=== PATIENT | male | born 1960 | race Caucasian/White ===

== ENCOUNTER 2017-06-09 12:07 | Emergency (ER) | payer OTHER, BC, SELFPAY | END 2017-06-09 15:33 | disposition home or self-care (01) | PROVIDERS: Emergency Provider Emergency Medicine; Family Provider Family Medicine; Visit Provider Emergency Medicine | DX: J11.1 Influenza due to unidentified influenza virus with other respiratory manifestations (principal); M25.561 Pain in right knee | CPT/HCPCS: 71020; 73700; 80053; 81001; 85025; 87040; 87070; 87275; 87276; 87430; 96365; 99284 ==

== ENCOUNTER → 2017-06-13 | Outpatient (CLI) | payer OTHER, BC, SELFPAY | PROVIDERS: Visit Provider Family Medicine | DX: R10.30 Lower abdominal pain, unspecified (principal) | CPT/HCPCS: 76881 ==

== ENCOUNTER 2017-11-20 07:43 | Observation (INO) ==
--- NOTE | 2017-11-20 08:02 | Emergency Department Note ---
ED Disposition Clinical Impression: Chest pain Qualifiers: Chest pain type: precordial pain Qualified Code(s): R07.2 - Precordial pain Disposition: Admitted as Observation Condition on Discharge: Fair Instructions: DI for Atypical Chest Pain Additional Instructions: Being admitted to rule out and get Cardiology Evaluation by Dr. Tolentino Referrals: Jamie Menjivar MD [Primary Care Provider] - Time of Disposition: 09:23 - Critical Care Critical Care Time: No Attestation: On , the high probability of a clinically significant, sudden or life threatening deterioration of the following system(s) required my full and direct attention, intervention and personal management. The time I documented below is in addition to time spent performing reported procedures but includes the following listed in this critical care notation. Medical Decision Making - Medical Records Medical records reviewed: Yes: I reviewed the patient's medical records. - Bryan Inquiry Pt receiving controlled substance: Yes Bryan was queried for this patient: No Reason not queried -: Emergent pt cond-no time Risks and benefits of using a controlled substance: were discussed with pt by me Vital Signs: 11/20/17 07:44 11/20/17 08:46 Temperature 98.2 F Temperature Source Oral Pulse Rate [Right Radial] 75 Respiratory Rate 18 Blood Pressure [Right Arm] 175/104 152/90 Blood Pressure Mean [Right Arm] 127 110 Blood Pressure Source [Right Arm] Automatic Cuff Automatic Cuff Blood Pressure Position [Right Arm] Sitting 02 Sat by Pulse Oximetry 98 Oxygen Delivery Method Room Air - Lab Data Lab results reviewed: Yes: I reviewed the patient's lab results. Lab Results 11/20/17 07:43: Amylase 89, Lipase 279 11/20/17 07:50: WBC 5.9, RBC 5.22, Hgb 16.2, Hct 50.6, MCV 96.8 H, MCH 31.0, MCHC 32.0, RDW 13.6, Plt Count 218, MPV 8.5, Neut % (Auto) 60.1, Lymph % (Auto) 30.5, [place] % (Auto) 7.1, Eos % (Auto) 1.9, Baso % (Auto) 0.4, Neut # (Auto) 3.5 , Lymph # (Auto) 1.8, [place] # (Auto) 0.4, Eos # (Auto) 0.1, Baso # (Auto) 0.0 11/20/17 07:50: Sodium 142, Potassium 3.7, Chloride 105, Carbon Dioxide 28, Anion Gap 12.7, BUN 19 H, Creatinine 1.13, Estimated Creat Clear 119, Estimated GFR 67, Est GFR ( Amer) 81, Glucose 158 H, Calcium 9.0, Total Bilirubin 0.4, AST 12 L, ALT 33, Alkaline Phosphatase 132 H, Troponin I < 0.02, Total Protein 7.9, Albumin 4.1, Globulin 3.8 H, Albumin/Globulin Ratio 1.1 11/20/17 07:50: PT 10.5, INR 0.97 11/20/17 07:50: B-Natriuretic Peptide 17 Result diagrams: 11/20/17 07:50 11/20/17 07:50 Orders (Tests/Meds): ED MEDICATIONS Generic Name Dose Route Start Last Admin Trade Name Freq PRN Reason Stop Dose Admin Nitroglycerin 0.4 mg 11/20/17 07:57 11/20/17 08:43 Nitrostat 0.4mg Sl Tablet SL 12/20/17 07:56 3 tab [id number] PRN Administration Chest Pain Discontinued Medications Generic Name Dose Route Start Last Admin Trade Name Freq PRN Reason Stop Dose Admin Aspirin 324 mg 11/20/17 07:57 11/20/17 08:44 Aspirin 81mg Chewable Tablet PO 11/20/17 07:58 324 mg ONCE ONE Administration Morphine Sulfate 4 mg 11/20/17 08:44 11/20/17 08:45 Morphine 4mg/Ml Syringe IV 11/20/17 08:45 4 mg ONCE ONE Administration Ondansetron HCl 4 mg 11/20/17 08:44 11/20/17 08:45 Zofran 4mg/2ml Vial IV 11/20/17 08:45 4 mg ONCE ONE Administration ORDERS Category Date Time Status BNP [B-Type Natriuretic Peptide] Stat Lab 11/20/17 08:56 Ordered Lactic Acid Stat Lab 11/20/17 08:54 Ordered Blood Culture Stat Micro 11/20/17 08:53 Ordered EKG Request [ECG Request by /Supa] Stat Y 11/20/17 07:56 Ordered - Radiology Data #1 Image(s): Chest Image Reviewed: Yes I reviewed the patient's radiology results, Yes I reviewed the patient's radiology image, Yes I discussed the image results w/the radiologist, Yes I have reviewed radiologist's interpretation Mild Cardiomegaly Chest Pain HPI - General Chief Complaint: Chest Pain Stated Complaint: Chest Pain Time Seen by Provider: 11/20/17 07:55 Mode of Arrival: Family Vehicle Limitations: No Limitations Description of Symptoms (Recalled from ER Triage Doc. by RN): Chest pain - History of Present Illness HPI narrative: Pt started having chest pain around 5:30 AM which he described as a squeezing pain in the center of his chest that went into his right arm and he was diaphoretic on arrival in the ED. He isw a smoker and has history of HTN and BP very high in the ED. Pain was a 10/10 on arrival and after 324mgt ASA and 1 NTG pain is a 1/10 MD complaint: chest pain indicative of cardiac Onset (ago): hour(s) Duration: constant Activity at onset: during rest Pain location: substernal Severity: severe Quality: tightness, heaviness Pain radiation: RUE Relieving factors: nitroglycerin Exacerbating factors: nothing Associated symptoms: diaphoresis Risk Factors for CAD: Hypertension, Family Hx of CAD, Smoking Treatments prior to or on arrival for Cardiac Chest Pain: aspirin, nitroglycerin , beta blockers - Related Data Home Medications Medication Instructions Recorded Confirmed Amlodipine Besylate/Benazepril 1 each PO DAILY 11/20/17 11/20/17 [Lotrel 10-20 mg Capsule] Diclofenac Potassium [Diclofenac 50 mg PO DAILY 11/20/17 11/20/17 50mg Tab] Metoprolol Tartrate 100 mg PO BID 11/20/17 11/20/17 Allergies Allergy/AdvReac Type Severity Reaction Status Date / Time naproxen [From Aleve] Allergy Verified 11/20/17 07:55 [facility] History I have reviewed the patient's past medical history: Yes Other Surgeries: Yes: Other (GB andd cervical fusion) ROS Obtained: Yes All systems reviewed & no additional complaints - Constitutional Constitutional: Reports system reviewed and no additional complaints, except as docu - Eyes Eyes: Reports system reviewed and no additional complaints, except as docu - ENT Ears, Nose, Mouth, and Throat: Reports system reviewed and no additional complaints, except as docu - Cardiovascular Cardiovascular: Reports system reviewed and no additional complaints, except as docu Physical Exam - General General appearance: alert, in distress - Head Head exam: atraumatic - Eye Eye exam: Present: normal appearance - ENT ENT exam: Present: normal exam - Neck Neck exam: Present: normal inspection - Chest Chest inspection: Present: normal inspection - Respiratory Respiratory exam: Present: normal lung sounds bilaterally - Cardiovascular Cardiovascular exam: Present: regular rate, normal rhythm - Abdominal Exam Abdominal exam: Present: soft, normal bowel sounds - Back Exam Back exam: Present: normal inspection - Neurological Exam Neurological exam: Present: alert, oriented X3 - Skin Skin exam: Present: diaphoresis
[2017-11-20 08:07] LABS: Basophils % 0.4 % (0.1-2.0); Eosinophils # 0.1 K/mm3 (0.0-0.4); Eosinophils % 1.9 % (0.1-12.0); Hematocrit 50.6 % (42.0-52.0); Hemoglobin 16.2 g/dL (14.1-18.0); Lymphocytes # 1.8 K/mm3 (0.7-4.5); Lymphocytes % 30.5 K/mm3 (10-50); Mean Corpuscular Volume 96.8 fl (80-94); Mean Platelet Volume 8.5 fl (7.4-10.4); Monocytes # 0.4 K/mm3 (0.1-1.0); Monocytes % 7.1 % (1.7-9.3); Neutrophils # 3.5 K/mm3 (1.8-7.8); Neutrophils % 60.1 % (37.0-80.0); Platelet Count 218 K/mm3 (142-424); Red Blood Count 5.22 M/mm3 (4.60-6.20); Red Cell Distribution Width 13.6 % (11.5-17.5); White Blood Count 5.9 K/mm3 (4.8-10.8)
[2017-11-20 08:19] LABS: Alanine Aminotransferase 33 U/L (12-78); Albumin Level 4.1 gm/dL (3.4-5.0); Albumin/Globulin Ratio 1.1 (1.1-1.8); Alkaline Phosphatase 132 U/L (46-116); Anion Gap 12.7 mEq/L (5-15); Aspartate Amino Transferase 12 U/L (15-37); Bilirubin,Total 0.4 mg/dL (0.2-1.0); Blood Urea Nitrogen 19 mg/dL (7-18); Carbon Dioxide 28 mmol/L (21.0-32.0); Chloride 105 mmol/L (98-107); Globulin 3.8 gm/dl (1.3-3.2); Glucose 158 mg/dL (74-106); Potassium 3.7 mmoL/L (3.5-5.1); Sodium 142 mmol/L (136-145); Total Protein,Serum 7.9 gm/dL (6.4-8.2)
[2017-11-20 08:27] LABS: INR 0.97 (0.9-1.1); Prothrombin Time 10.5 seconds (9.4-11.8)
[2017-11-20 08:40] LABS: Amylase 89 U/L (25-125); Lipase 279 u/L (73-393)
--- NOTE | 2017-11-20 10:16 | History & Physical Report ---
*Admission Date: 11/20/17 <Narda Paez 11/20/17 10:16> *Chief complaint: chest pain <Narda Paez 11/20/17 10:16> *History of present illness: Mr Mcmillan is a 56 year old male with a history of HTN and psoriatic arthritis who presented to the emergency department for onset of right sided chest discomfort this a.m. Symptoms started anteriorly and began radiating towards the back with discomfort in the armpit and triceps area. Symptoms have been persistent to some degree since about 5:30 this morning. He did go on to work at which time the discomfort did worsen. Thus he presented to the ER. He did receive significant relief in the emergency department with combination of nitroglycerin and morphine. Symptoms went from "10/10" down to about a 1/10 before starting to ramp back up at this time. He has received nitroglycerin approximately 10 minutes ago with no change in his symptoms at this time. He just finished eating lunch and has had no change in his symptoms from that. Movement or changing position does not aggravate or alleviate his symptoms. He relates almost the very same symptoms in the late for which a cardiac cath was performed which revealed no coronary artery disease and "heart as strong as a bull". The patient had his gallbladder taken out at that time with relief of symptoms. The patient does smoke but does not drink and is not a diabetic. His initial cardiac enzyme is normal. His EKG is sinus with no acute changes. Cardiology is consulted for evaluation and recommendations. Patient was noted to be hypertensive on admission despite having taken his morning medicines consisting of Lotrel 5-40 and metoprolol 100 mg. <Narda Paez 11/20/17 13:47> [facility] History Medical History: Reports:: Hypertension Denies:: Arrhythmia, Asthma, Atherosclerotic Heart Disease, BPH, Chronic Obstructive Pulmonary Disease (COPD), Coronary Artery Disease, Cerebrovascular Accident, Dementia, Depression, Diabetes Mellitus Type 2, Gastroesophageal Reflux Disease(GERD) <PaezNarda 11/20/17 13:47> Other Medical History: Reports: Arthritis <PaezNarda Jorge Luis 11/20/17 13:47> Laterality Cases: Bilateral: Tonsillectomy <Narda Paez 11/20/17 13:47> Other Surgeries: Yes: Cholecystectomy, Other (GB andd cervical fusion) < Narda Paez 11/20/17 13:47> Comment: Hemorrhoidectomy <Narda Paez 11/20/17 13:47> - *Social History Smoking Status: Current every day smoker <Narda Paez 11/20/17 13:47> *Family Hx:: Coronary Artery Disease (maternal uncles) <Narda Paez 13:47> Review of Systems - Constitutional Denies body ache(s), Denies fever(s) <Narda Paez 11/20/17 13:47> - ENT Denies ear pain, Denies sore throat <Narda Paez 11/20/17 13:47> - *Cardiovascular Reports chest pain, Reports chest pain at rest, Reports shortness of breath, Denies leg swelling <Narda Paez 11/20/17 13:47> - *Respiratory Denies chest congestion, Denies cough <JeannineNarda 11/20/17 13:47> - *Gastrointestinal Denies abdominal pain, Denies change in stools, Denies constipation, Denies heartburn, Denies bright, red blood in stools, Denies nausea, Denies vomiting <Narda Paez 11/20/17 13:47> - *Genitourinary Denies difficulty urinating <Narda Paez 11/20/17 13:47> - *Musculoskeletal Reports joint pain <Narda Paez 11/20/17 13:47> - *Neurologic Denies abnormal walking <Narda Paez 11/20/17 13:47> - Psychiatric Denies depression <Narda Paez 11/20/17 13:47> Meds Home Medications Medication Instructions Recorded Confirmed Type Amlodipine Besylate/Benazepril 1 cap PO DAILY 11/20/17 11/20/17 History [Amlodipine-Benazepril 5-40 mg] Diclofenac Sodium [Diclofenac 75mg 75 mg PO BID 11/20/17 11/20/17 History Tab] Metoprolol Tartrate 50 mg PO BID 11/20/17 11/20/17 History Ustekinumab [Stelara] 90 mg SQ DIRECTED 11/20/17 11/20/17 History <Jamie Menjivar - 11/20/17 18:26> Allergies Allergy/AdvReac Type Severity Reaction Status Date / Time naproxen [From Aleve] Allergy Verified 11/20/17 07:55 <OttoJamie Shelby - 11/20/17 18:26> Exam Vital signs and Labs for Last 24 Hours: Temp Pulse Resp BP Pulse Ox 98.3 F 64 20 178/98 95 11/20/17 10:55 11/20/17 17:00 11/20/17 17:00 11/20/17 17:00 11/20/17 17:00 Laboratory Results - last 24 hr 11/20/17 07:43: Amylase 89, Lipase 279 11/20/17 07:50: WBC 5.9, RBC 5.22, Hgb 16.2, Hct 50.6, MCV 96.8 H, MCH 31.0, MCHC 32.0, RDW 13.6, Plt Count 218, MPV 8.5, Neut % (Auto) 60.1, Lymph % (Auto) 30.5, [place] % (Auto) 7.1, Eos % (Auto) 1.9, Baso % (Auto) 0.4, Neut # (Auto) 3.5 , Lymph # (Auto) 1.8, [place] # (Auto) 0.4, Eos # (Auto) 0.1, Baso # (Auto) 0.0 11/20/17 07:50: Sodium 142, Potassium 3.7, Chloride 105, Carbon Dioxide 28, Anion Gap 12.7, BUN 19 H, Creatinine 1.13, Estimated Creat Clear 119, Estimated GFR 67, Est GFR ( Amer) 81, Glucose 158 H, Calcium 9.0, Total Bilirubin 0.4, AST 12 L, ALT 33, Alkaline Phosphatase 132 H, Troponin I < 0.02, Total Protein 7.9, Albumin 4.1, Globulin 3.8 H, Albumin/Globulin Ratio 1.1 11/20/17 07:50: PT 10.5, INR 0.97 11/20/17 07:50: B-Natriuretic Peptide 11/20/17 09:23: Lactic Acid 1.9 11/20/17 12:40: Total Creatine Kinase 136, CK-MB (CK-2) 1.7, CK-MB (CK-2) Rel Index 1.3, Troponin I < 0.02 11/20/17 14:20: Total Creatine Kinase 139, CK-MB (CK-2) 1.7, CK-MB (CK-2) Rel Index 1.2, Troponin I < 0.02 <Jamie Menjivar - 11/20/17 18:26> Temp Pulse Resp BP Pulse Ox 98.2 F 75 18 152/90 98 11/20/17 10:01 11/20/17 10:01 11/20/17 10:01 11/20/17 10:01 11/20/17 07:44 Laboratory Results - last 24 hr 11/20/17 07:43: Amylase 89, Lipase 279 11/20/17 07:50: WBC 5.9, RBC 5.22, Hgb 16.2, Hct 50.6, MCV 96.8 H, MCH 31.0, MCHC 32.0, RDW 13.6, Plt Count 218, MPV 8.5, Neut % (Auto) 60.1, Lymph % (Auto) 30.5, [place] % (Auto) 7.1, Eos % (Auto) 1.9, Baso % (Auto) 0.4, Neut # (Auto) 3.5 , Lymph # (Auto) 1.8, [place] # (Auto) 0.4, Eos # (Auto) 0.1, Baso # (Auto) 0.0 11/20/17 07:50: Sodium 142, Potassium 3.7, Chloride 105, Carbon Dioxide 28, Anion Gap 12.7, BUN 19 H, Creatinine 1.13, Estimated Creat Clear 119, Estimated GFR 67, Est GFR ( Amer) 81, Glucose 158 H, Calcium 9.0, Total Bilirubin 0.4, AST 12 L, ALT 33, Alkaline Phosphatase 132 H, Troponin I < 0.02, Total Protein 7.9, Albumin 4.1, Globulin 3.8 H, Albumin/Globulin Ratio 1.1 11/20/17 07:50: PT 10.5, INR 0.97 11/20/17 07:50: B-Natriuretic Peptide 17 <Narda Paez - 11/20/17 10:16> I & O for Last 24 hours: Intake & Output 11/18/17 11/19/17 11/20/17 11/21/17 11:59 11:59 11:59 11:59 Intake Total 1100 / 1100 Balance 1100 / 1100 Weight 261 lb 5 oz <Jamie Menjivar - 11/20/17 18:26> Intake & Output 11/17/17 11/18/17 11/19/17 11/20/17 11:59 11:59 11:59 11:59 Weight 260 lb <Narda Paez 11/20/17 10:16> Radiology Reports for the Last 24 Hours: CXR 11/20/17 IMPRESSION: Cardiomegaly otherwise negative <Narda Paez 11/20/17 13:47> - Constitutional no acute distress <Narda Paez 11/20/17 13:47> - *Routine HEENT Exam Head: Present: normocephalic, atraumatic <Narda Paez 11/20/17 13:47> Eye: Present: PERRL. Absent: conjunctival icterus, scleral injection <Narda Paez 11/20/17 13:47> ENT: Present: mucous membranes moist, oropharynx clear <Narda Paez 13:47> - *Routine Neck Exam Present: supple. Absent: carotid bruit, lymphadenopathy, thyromegaly <Narda Paez 11/20/17 13:47> - *Routine Respiratory Exam Present: CTA bilaterally (A&P) <Narda Paez 11/20/17 13:47> - *Routine Cardiovascular Exam Present: RRR <Narda Paez 11/20/17 13:47> - *Routine Abdominal Exam Present: soft, normoactive bowel sounds, hernia. Absent: tenderness <Narda Paez 11/20/17 13:47> - *Routine Extremities Exam Present: full ROM. Absent: edema, calf tenderness <Narda Paez 11/20/17 13:47> - *Routine Neurological Exam Present: alert, oriented X3 <Narda Paez 11/20/17 13:47> H&P: Result - Labs Labs: Short CBC 11/20/17 Range/Units 07:50 WBC 5.9 (4.8-10.8) K/mm3 Hgb 16.2 (14.1-18.0) g/dL Hct 50.6 (42.0-52.0) % Plt Count 218 (142-424) K/mm3 [facility] 11/20/17 07:50 Sodium 142 Potassium 3.7 Chloride 105 Carbon Dioxide 28 BUN 19 H Creatinine 1.13 Glucose 158 H Calcium 9.0 Cardiac Enzymes 11/20/17 11/20/17 11/20/17 Range/Units 07:50 12:40 14:20 Total Creatine Kinase 136 139 (39-308) U/L CK-MB (CK-2) 1.7 1.7 (0.0-3.6) ng/ml Troponin I < 0.02 < 0.02 < 0.02 (0.00-0.06) ng/ml Liver Function 11/20/17 Range/Units 07:50 Total Bilirubin 0.4 (0.2-1.0) mg/dL AST 12 L (15-37) U/L ALT 33 (12-78) U/L Alkaline Phosphatase 132 H (46-116) U/L Albumin 4.1 (3.4-5.0) gm/dL <Jamie Menjivar - 11/20/17 18:26> Short CBC 11/20/17 Range/Units 07:50 WBC 5.9 (4.8-10.8) K/mm3 Hgb 16.2 (14.1-18.0) g/dL Hct 50.6 (42.0-52.0) % Plt Count 218 (142-424) K/mm3 [facility] 11/20/17 07:50 Sodium 142 Potassium 3.7 Chloride 105 Carbon Dioxide 28 BUN 19 H Creatinine 1.13 Glucose 158 H Calcium 9.0 Cardiac Enzymes 11/20/17 Range/Units 07:50 Troponin I < 0.02 (0.00-0.06) ng/ml Liver Function 11/20/17 Range/Units 07:50 Total Bilirubin 0.4 (0.2-1.0) mg/dL AST 12 L (15-37) U/L ALT 33 (12-78) U/L Alkaline Phosphatase 132 H (46-116) U/L Albumin 4.1 (3.4-5.0) gm/dL <Narda Paez - 11/20/17 10:16> Assessment and Plan (1) Chest pain Current visit: Yes Status: Acute Qualifiers: Chest pain type: precordial pain Qualified Code(s): R07.2 - Precordial pain Category: Medical Code(s): R07.9 - Chest pain, unspecified (2) Tobacco use disorder Current visit: Yes Status: Chronic Category: Medical Code(s): F17.200 - Nicotine dependence, unspecified, uncomplicated (3) Hypertension Current visit: Yes Status: Chronic Category: Medical Code(s): I10 - Essential (primary) hypertension <Jamie Menjivar - 11/20/17 18:26> (1) Chest pain Current visit: Yes Status: Acute Qualifiers: Chest pain type: precordial pain Qualified Code(s): R07.2 - Precordial pain Category: Medical Code(s): R07.9 - Chest pain, unspecified (2) Tobacco use disorder Current visit: Yes Status: Chronic Category: Medical Code(s): F17.200 - Nicotine dependence, unspecified, uncomplicated (3) Hypertension Current visit: Yes Status: Chronic Category: Medical Code(s): I10 - Essential (primary) hypertension <Narda Paez - 11/20/17 13:31> - Assessment and plan all Dx Assessment and Plan for all problems:: Patient seen and examined. Concur with plan for serial enzymes and cardiology consult <Jamie Menjivar - 11/20/17 18:26> cardiac enzymes and cardiology to see <Narda Paez - 11/20/17 13:47>
--- NOTE | 2017-11-20 10:58 | Pharmacy Consult Notes ---
[facility] Pharmacy VTE Monitoring - Patient Demographics Admission date: 11/20/17 Report Date: 11/20/17 Time: 10:58 Allergies/Adverse Reactions: Patient Allergies naproxen [From Aleve] Allergy (Verified 11/20/17 07:55) Height: 1.83 m Weight: 118.529 kg Patient Problems: Current Active Problems Chest pain (Acute) - VTE Risk Labs: VTE Related Lab Results Hgb 16.2 g/dL (14.1-18.0) 11/20/17 07:50 Hct 50.6 % (42.0-52.0) 11/20/17 07:50 Plt Count 218 K/mm3 (142-424) 11/20/17 07:50 PT 10.5 seconds (9.4-11.8) 11/20/17 07:50 INR 0.97 (0.9-1.1) 11/20/17 07:50 BUN 19 mg/dL (7-18) H 11/20/17 07:50 Creatinine 1.13 mg/dL (0.70-1.30) 11/20/17 07:50 Estimated Creat Clear 119 mL/min (0-300) 11/20/17 07:50 Was VTE Risk Assessment Performed: No Clinical Trial Participant: No - Prophylaxis VTE Prophylaxis Ordered?: Yes Types of VTE Prophylaxis: TEDS Knee High
--- NOTE | 2017-11-20 12:42 | Consult Report ---
History of Present Illness Consult date: 11/20/17 Requesting physician: Jamie Menjivar Consult reason: chest pain Chief complaint: chest pain Additional Medical History:: 1. Tobacco use 2. Hypertension treated for about 20 years 3. History of cholecystectomy approximately 20 years ago 4. Psoriasis 5. Arthritis and cervical bulging disc History of present illness: 56-year-old white male presented to the emergency department for onset of right sided chest discomfort this a.m. Symptoms started anteriorly and began radiating towards the back with discomfort in the armpit and triceps area. Symptoms have been persistent to some degree since about 5:30 this morning. He did receive significant relief in the emergency department with combination of nitroglycerin and morphine. Symptoms went from "10/10" down to about a 1/10 before starting to ramp back up at this time. He has received nitroglycerin approximately 10 minutes ago with no change in his symptoms at this time. He just finished eating lunch and has had no change in his symptoms from that. Movement or changing position does not aggravate or alleviate his symptoms. He relates almost the very same symptoms in the late for which a cardiac cath was performed which revealed no coronary artery disease and "heart as strong as a bull". The patient had his gallbladder taken out at that time with relief of symptoms. The patient does smoke but does not drink and is not a diabetic. There is no family history of heart disease. His initial cardiac enzyme is normal. His EKG is sinus with no acute changes. Cardiology consulted for evaluation and recommendations. Patient was noted to be hypertensive on admission despite having taken his morning medicines consisting of amlodipine 10 mg and metoprolol 100 mg. [facility] History Medical History: Reports:: Hypertension Denies:: Cancer, Diabetes Mellitus Type 1, Diabetes Mellitus Type 2, MRSA Other Surgeries: Yes: Cholecystectomy, Other (cervical fusion) Amputation: No Fractures: No - *Social History Educational Level: Attended College Smoking Status: Current every day smoker Tobacco Type: cigarettes # Packs/Day (cigarettes): 10 Alcohol Intake: never Occupational Status: employed Housing: house Household Members: spouse - Psychiatric History Expresses thoughts of harming self/others: None Suicide Plan Description: No Plan *Family Hx:: Cancer, Coronary Artery Disease, Diabetes Meds Home Medications Medication Instructions Recorded Confirmed Type Amlodipine Besylate/Benazepril 1 cap PO DAILY 11/20/17 11/20/17 History [Amlodipine-Benazepril 5-40 mg] Diclofenac Sodium [Diclofenac 75mg 75 mg PO BID 11/20/17 11/20/17 History Tab] Metoprolol Tartrate 50 mg PO BID 11/20/17 11/20/17 History Ustekinumab [Stelara] 90 mg SQ DIRECTED 11/20/17 11/20/17 History Allergies Allergy/AdvReac Type Severity Reaction Status Date / Time naproxen [From Aleve] Allergy Verified 11/20/17 07:55 Review of Systems - *Cardiovascular Reports chest pain, Reports shortness of breath with activity - *Respiratory Reports shortness of breath - *Gastrointestinal Reports loose stools, Denies abdominal pain, Denies constipation - *Genitourinary Denies difficulty urinating - *Musculoskeletal Reports joint pain Exam Vital signs and Labs for Last 24 Hours: Temp Pulse Resp BP Pulse Ox 98.3 F 63 18 167/98 98 11/20/17 10:55 11/20/17 12:05 11/20/17 12:06 11/20/17 12:05 11/20/17 12:05 Laboratory Results - last 24 hr 11/20/17 07:43: Amylase 89, Lipase 279 11/20/17 07:50: WBC 5.9, RBC 5.22, Hgb 16.2, Hct 50.6, MCV 96.8 H, MCH 31.0, MCHC 32.0, RDW 13.6, Plt Count 218, MPV 8.5, Neut % (Auto) 60.1, Lymph % (Auto) 30.5, [place] % (Auto) 7.1, Eos % (Auto) 1.9, Baso % (Auto) 0.4, Neut # (Auto) 3.5 , Lymph # (Auto) 1.8, [place] # (Auto) 0.4, Eos # (Auto) 0.1, Baso # (Auto) 0.0 11/20/17 07:50: Sodium 142, Potassium 3.7, Chloride 105, Carbon Dioxide 28, Anion Gap 12.7, BUN 19 H, Creatinine 1.13, Estimated Creat Clear 119, Estimated GFR 67, Est GFR ( Amer) 81, Glucose 158 H, Calcium 9.0, Total Bilirubin 0.4, AST 12 L, ALT 33, Alkaline Phosphatase 132 H, Troponin I < 0.02, Total Protein 7.9, Albumin 4.1, Globulin 3.8 H, Albumin/Globulin Ratio 1.1 11/20/17 07:50: PT 10.5, INR 0.97 11/20/17 07:50: B-Natriuretic Peptide 17 11/20/17 09:23: Lactic Acid 1.9 I & O for Last 24 hours: Intake & Output 11/18/17 11/19/17 11/20/17 11/21/17 11:59 11:59 11:59 11:59 Weight 261 lb 5 oz - *Routine Neck Exam Absent: JVD, carotid bruit - *Routine Respiratory Exam Present: CTA bilaterally - *Routine Cardiovascular Exam Present: RRR. Absent: murmur, gallop, rubs - *Routine Abdominal Exam Present: soft. Absent: tenderness - *Routine Extremities Exam Absent: edema - *Routine Neurological Exam Present: alert, oriented X3, moving all extremities Assessment and Plan (1) Hypertension Current visit: Yes Status: Acute Category: Medical Code(s): I10 - Essential (primary) hypertension (2) Chest pain Current visit: Yes Status: Acute Qualifiers: Chest pain type: precordial pain Qualified Code(s): R07.2 - Precordial pain Category: Medical Code(s): R07.9 - Chest pain, unspecified (3) Abnormal EKG Current visit: Yes Status: Acute Category: Medical Code(s): R94.31 - Abnormal electrocardiogram [ECG] [EKG] - Assessment and plan all Dx Assessment and Plan for all problems:: 1. Will repeat EKG at this time. 2. We will give additional 10 mg of Norvasc now. Update: Repeat EKG shows evidence of T-wave inversion in inferior leads consistent with suggestion of inferior ischemia. In light of patient's chest pain we will add nitroglycerin paste and prepare him for a heart catheterization.
[2017-11-20 13:09] LABS: Creatine Kinase 136 U/L (39-308)
[2017-11-20 15:00] LABS: Creatine Kinase 139 U/L (39-308)
--- NOTE | 2017-11-21 08:20 | Progress Note ---
<Narda Paez - Last Filed: 11/21/17 08:17> Internal Medicine - PN: Subj *Date: 11/21/17 *Time: 08:17 Interval history: Doing well. He still has some right side chest soreness and also sore in his right upper arm. States he could not sleep last night. He set up in the chair most of the night. He is eating without difficulty. His breathing is normal. He ambulates without difficulty. Discussed at length smoking cessation and necessary changes of behavior. Exam Vital signs and Labs for Last 24 Hours: Temp Pulse Resp BP Pulse Ox 97.9 F 73 20 190/100 97 11/21/17 07:44 11/21/17 07:44 11/21/17 07:44 11/21/17 07:44 11/21/17 07:44 Laboratory Results - last 24 hr 11/20/17 07:43: Amylase 89, Lipase 279 11/20/17 07:50: WBC 5.9, RBC 5.22, Hgb 16.2, Hct 50.6, MCV 96.8 H, MCH 31.0, MCHC 32.0, RDW 13.6, Plt Count 218, MPV 8.5, Neut % (Auto) 60.1, Lymph % (Auto) 30.5, [place] % (Auto) 7.1, Eos % (Auto) 1.9, Baso % (Auto) 0.4, Neut # (Auto) 3.5 , Lymph # (Auto) 1.8, Greene # (Auto) 0.4, Eos # (Auto) 0.1, Baso # (Auto) 0.0 11/20/17 07:50: Sodium 142, Potassium 3.7, Chloride 105, Carbon Dioxide 28, Anion Gap 12.7, BUN 19 H, Creatinine 1.13, Estimated Creat Clear 119, Estimated GFR 67, Est GFR ( Amer) 81, Glucose 158 H, Calcium 9.0, Total Bilirubin 0.4, AST 12 L, ALT 33, Alkaline Phosphatase 132 H, Troponin I < 0.02, Total Protein 7.9, Albumin 4.1, Globulin 3.8 H, Albumin/Globulin Ratio 1.1 11/20/17 07:50: PT 10.5, INR 0.97 11/20/17 07:50: B-Natriuretic Peptide 17 11/20/17 09:23: Lactic Acid 1.9 11/20/17 12:40: Total Creatine Kinase 136, CK-MB (CK-2) 1.7, CK-MB (CK-2) Rel Index 1.3, Troponin I < 0.02 11/20/17 14:20: Total Creatine Kinase 139, CK-MB (CK-2) 1.7, CK-MB (CK-2) Rel Index 1.2, Troponin I < 0.02 11/20/17 20:00: Total Creatine Kinase 122, CK-MB (CK-2) 1.5, CK-MB (CK-2) Rel Index 1.2, Troponin I 0.03 I & O for Last 24 hours: Intake & Output 11/18/17 11/19/17 11/20/17 11/21/17 11:59 11:59 11:59 11:59 Intake Total 1700 / 1700 Balance 1700 / 1700 Weight 261 lb 5 oz Microbiology Reports for the Last 24 Hours: Microbiology 11/20/17 09:29 Blood Blood Culture - Preliminary Radiology Reports for the Last 24 Hours: Left heart cath 11/20/2017 IMPRESSION: 1. Mild to moderate disease involving the mid LAD which is nonflow limiting 2. Normal ejection fraction 3. Normal to mildly elevated LVEDP - Constitutional no acute distress - *Routine Respiratory Exam Present: CTA bilaterally (Anteriorly and posteriorly) - *Routine Cardiovascular Exam Present: RRR - *Routine Abdominal Exam Present: soft, normoactive bowel sounds. Absent: tenderness - *Routine Extremities Exam Present: pulses intact. Absent: edema, calf tenderness - *Routine Neurological Exam Present: alert, oriented X3 Assessment and Plan (1) Chest pain Current visit: Yes Status: Acute Category: Medical Code(s): R07.9 - Chest pain, unspecified (2) Tobacco use disorder Current visit: Yes Status: Chronic Category: Medical Code(s): F17.200 - Nicotine dependence, unspecified, uncomplicated (3) Hypertension Current visit: Yes Status: Chronic Category: Medical Code(s): I10 - Essential (primary) hypertension - Assessment and plan all Dx Assessment and Plan for all problems:: Will discharge home on medicines as per cardiology. Follow-up [facility] and with cardiology. Echocardiogram report pending at time of discharge. <Ron Siegel - Last Filed: 11/21/17 08:24> Internal Medicine - PN: Subj *Date: 11/21/17 *Time: 08:23 Exam Vital signs and Labs for Last 24 Hours: Temp Pulse Resp BP Pulse Ox 97.9 F 73 20 190/100 97 11/21/17 07:44 11/21/17 07:44 11/21/17 07:44 11/21/17 07:44 11/21/17 07:44 Laboratory Results - last 24 hr 11/20/17 07:43: Amylase 89, Lipase 279 11/20/17 07:50: Sodium 142, Potassium 3.7, Chloride 105, Carbon Dioxide 28, Anion Gap 12.7, BUN 19 H, Creatinine 1.13, Estimated Creat Clear 119, Estimated GFR 67, Est GFR ( Amer) 81, Glucose 158 H, Calcium 9.0, Total Bilirubin 0.4, AST 12 L, ALT 33, Alkaline Phosphatase 132 H, Troponin I < 0.02, Total Protein 7.9, Albumin 4.1, Globulin 3.8 H, Albumin/Globulin Ratio 1.1 11/20/17 07:50: PT 10.5, INR 0.97 11/20/17 07:50: B-Natriuretic Peptide 17 11/20/17 09:23: Lactic Acid 1.9 11/20/17 12:40: Total Creatine Kinase 136, CK-MB (CK-2) 1.7, CK-MB (CK-2) Rel Index 1.3, Troponin I < 0.02 11/20/17 14:20: Total Creatine Kinase 139, CK-MB (CK-2) 1.7, CK-MB (CK-2) Rel Index 1.2, Troponin I < 0.02 11/20/17 20:00: Total Creatine Kinase 122, CK-MB (CK-2) 1.5, CK-MB (CK-2) Rel Index 1.2, Troponin I 0.03 I & O for Last 24 hours: Intake & Output 11/18/17 11/19/17 11/20/17 11/21/17 11:59 11:59 11:59 11:59 Intake Total 1700 / 1700 Balance 1700 / 1700 Weight 261 lb 5 oz Microbiology Reports for the Last 24 Hours: Microbiology 11/20/17 09:29 Blood Blood Culture - Preliminary Assessment and Plan (1) Chest pain Current visit: Yes Status: Acute Qualifiers: Chest pain type: precordial pain Qualified Code(s): R07.2 - Precordial pain Category: Medical Code(s): R07.9 - Chest pain, unspecified (2) Tobacco use disorder Current visit: Yes Status: Chronic Category: Medical Code(s): F17.200 - Nicotine dependence, unspecified, uncomplicated (3) Hypertension Current visit: Yes Status: Chronic Category: Medical Code(s): I10 - Essential (primary) hypertension - Assessment and plan all Dx Assessment and Plan for all problems:: Saw patient, agree with above note.
--- NOTE | 2017-11-21 08:21 | Progress Note ---
Subjective Date: 11/21/17 Time: 08:17 Principal diagnosis: chest pain, HTN Interval history: 56-year-old white male in no acute distress. Still with some musculoskeletal discomfort in the right side which improves with stretching. Hernia cath revealed [id number] coronary artery disease. Patient does have significant hypertension for which medications have been adjusted. Exam Vital signs and Labs for Last 24 Hours: Temp Pulse Resp BP Pulse Ox 97.9 F 73 20 190/100 97 11/21/17 07:44 11/21/17 07:44 11/21/17 07:44 11/21/17 07:44 11/21/17 07:44 Laboratory Results - last 24 hr 11/20/17 07:43: Amylase 89, Lipase 279 11/20/17 07:50: WBC 5.9, RBC 5.22, Hgb 16.2, Hct 50.6, MCV 96.8 H, MCH 31.0, MCHC 32.0, RDW 13.6, Plt Count 218, MPV 8.5, Neut % (Auto) 60.1, Lymph % (Auto) 30.5, [place] % (Auto) 7.1, Eos % (Auto) 1.9, Baso % (Auto) 0.4, Neut # (Auto) 3.5 , Lymph # (Auto) 1.8, [place] # (Auto) 0.4, Eos # (Auto) 0.1, Baso # (Auto) 0.0 11/20/17 07:50: Sodium 142, Potassium 3.7, Chloride 105, Carbon Dioxide 28, Anion Gap 12.7, BUN 19 H, Creatinine 1.13, Estimated Creat Clear 119, Estimated GFR 67, Est GFR ( Amer) 81, Glucose 158 H, Calcium 9.0, Total Bilirubin 0.4, AST 12 L, ALT 33, Alkaline Phosphatase 132 H, Troponin I < 0.02, Total Protein 7.9, Albumin 4.1, Globulin 3.8 H, Albumin/Globulin Ratio 1.1 11/20/17 07:50: PT 10.5, INR 0.97 11/20/17 07:50: B-Natriuretic Peptide 17 11/20/17 09:23: Lactic Acid 1.9 11/20/17 12:40: Total Creatine Kinase 136, CK-MB (CK-2) 1.7, CK-MB (CK-2) Rel Index 1.3, Troponin I < 0.02 11/20/17 14:20: Total Creatine Kinase 139, CK-MB (CK-2) 1.7, CK-MB (CK-2) Rel Index 1.2, Troponin I < 0.02 11/20/17 20:00: Total Creatine Kinase 122, CK-MB (CK-2) 1.5, CK-MB (CK-2) Rel Index 1.2, Troponin I 0.03 I & O for Last 24 hours: Intake & Output 11/18/17 11/19/17 11/20/17 11/21/17 11:59 11:59 11:59 11:59 Intake Total 1700 / 1700 Balance 1700 / 1700 Weight 261 lb 5 oz Microbiology Reports for the Last 24 Hours: Microbiology 11/20/17 09:29 Blood Blood Culture - Preliminary - *Routine Respiratory Exam Present: CTA bilaterally - *Routine Cardiovascular Exam Present: RRR Progress Note: A&P (1) Chest pain Status: Acute Current Visit: Yes (2) Tobacco use disorder Status: Chronic Current Visit: Yes (3) Hypertension Status: Chronic Current Visit: Yes Assessment and Plan for All Diagnoses:: Okay for discharge from cardiology standpoint. Medications at discharge to include: Coreg 25 mg twice daily Hydrochlorothiazide 25 mg twice daily Lisinopril 20 mg twice daily Norvasc 10 mg daily Aspirin 81 mg daily Crestor 10 mg or atorvastatin 20 mg daily Follow-up in our office in 2 weeks with blood pressure readings and blood pressure machine. We will plan to obtain a renal duplex in the future to rule out renal artery stenosis.
--- NOTE | 2017-11-22 11:33 | Discharge Summary ---
General - General Admission date:: 11/20/17 Discharge date: 11/21/17 HPI HPI: Mr Mcmillan is a 56 year old male with a history of HTN and psoriatic arthritis who presented to the emergency department for onset of right sided chest discomfort this a.m. Symptoms started anteriorly and began radiating towards the back with discomfort in the armpit and triceps area. Symptoms have been persistent to some degree since about 5:30 this morning. He did go on to work at which time the discomfort did worsen. Thus he presented to the ER. He did receive significant relief in the emergency department with combination of nitroglycerin and morphine. Symptoms went from "10/10" down to about a 1/10 before starting to ramp back up at this time. He has received nitroglycerin approximately 10 minutes ago with no change in his symptoms at this time. He just finished eating lunch and has had no change in his symptoms from that. Movement or changing position does not aggravate or alleviate his symptoms. He relates almost the very same symptoms in the late for which a cardiac cath was performed which revealed no coronary artery disease and "heart as strong as a bull". The patient had his gallbladder taken out at that time with relief of symptoms. The patient does smoke but does not drink and is not a diabetic. His initial cardiac enzyme is normal. His EKG is sinus with no acute changes. Cardiology is consulted for evaluation and recommendations. Patient was noted to be hypertensive on admission despite having taken his morning medicines consisting of Lotrel 5-40 and metoprolol 100 mg. Hospital Course Hospital Course: Cardiology saw the patient and repeated his EKG. They also gave him an additional 10 mg of Norvasc. His repeat EKG showed evidence of T-wave inversion in inferior leads consistent with suggestion of inferior ischemia. In light of the patient's chest pain, cardiology added nitroglycerin paste and prepared him for a heart catheterization. His cath revealed [id number] coronary artery disease. Cardiology felt he was stable for discharge and would need to be discharged home on Coreg 25 mg twice daily, Hydrochlorothiazide 25 mg twice daily, Lisinopril 20 mg twice daily, Norvasc 10 mg daily, Aspirin 81 mg daily, and Crestor 10 mg or atorvastatin 20 mg daily. He will need to follow -up in the cardiology office in 2 weeks with blood pressure readings and a blood pressure machine. They will get a renal duplex in the future to rule out renal artery stenosis. Objective Vital signs: Temp Pulse Resp BP Pulse Ox 97.9 F 70 20 178/98 97 11/21/17 07:44 11/21/17 08:00 11/21/17 07:44 11/21/17 10:22 11/21/17 07:44 Narrative: - Constitutional no acute distress - *Routine HEENT Exam Head: Present: normocephalic, atraumatic Eye: Present: PERRL. Absent: conjunctival icterus, scleral injection ENT: Present: mucous membranes moist, oropharynx clear - *Routine Neck Exam Present: supple. Absent: carotid bruit, lymphadenopathy, thyromegaly - *Routine Respiratory Exam Present: CTA bilaterally (A&P) - *Routine Cardiovascular Exam Present: RRR - *Routine Abdominal Exam Present: soft, normoactive bowel sounds, hernia. Absent: tenderness - *Routine Extremities Exam Present: full ROM. Absent: edema, calf tenderness - *Routine Neurological Exam Present: alert, oriented X3 Results Labs on day of discharge: Preliminary micro results at discharge 11/20/17 09:35 Blood Culture - Preliminary Blood NO GROWTH AFTER 48 HOURS 11/20/17 09:29 Blood Culture - Preliminary Blood Gram Positive Bacilli DS: Diagnosis - Discharge Diagnosis (1) Chest pain Status: Acute (2) Tobacco use disorder Status: Chronic (3) Hypertension Status: Chronic Discharge Plan - Patient Discharge Instructions ACTIVITY: Continue current activity DIET: continue same diet Additional Instructions: no lifting more than 30 pounds for the week. follow restrictions listed out follow up with md take new meds as ordered Patient Instructions: DI for Cardiac Catheterization - Follow up Plan Follow up with: Ron Siegel MD [Family Provider] - 2 weeks Bro Tolentino MD [Staff Physician] - 1 week Disposition: Home, Self-Intermediate Medications: Home Medications Medication Instructions Recorded Confirmed Type Diclofenac Sodium [Diclofenac 75mg 75 mg PO BID 11/20/17 11/20/17 History Tab] Ustekinumab [Stelara] 90 mg SQ DIRECTED 11/20/17 11/20/17 History Prescriptions/Medication Reconciliation: New Amlodipine Besylate [Norvasc 10mg tablet] 10 mg PO DAILY #30 tab Aspirin [Aspir 81] 81 mg PO DAILY #30 tablet. Atorvastatin Calcium [Atorvastatin 20mg Tab] 20 mg PO DAILY #30 tab Carvedilol [Coreg 25mg Tablet] 25 mg PO BID #60 tab hydroCHLOROthiazide [HCTZ 25mg tab] 25 mg PO BID #60 tab Lisinopril [Lisinopril 20mg Tab] 20 mg PO DAILY #30 tab Continue Ustekinumab [Stelara] 90 mg SQ DIRECTED Diclofenac Sodium [Diclofenac 75mg Tab] 75 mg PO BID Discontinued Amlodipine Besylate/Benazepril [Amlodipine-Benazepril 5-40 mg] 1 cap PO DAILY Metoprolol Tartrate 50 mg PO BID
== END 2017-11-21 10:35 | disposition home or self-care (01) ==
LOC: 2ND 07:43 → ER 07:43 → 2ND 10:20
PROVIDERS: ADMIT Family Medicine; ATTEND Family Medicine

== ENCOUNTER → 2017-12-03 11:22 | Outpatient (CLI) | payer BC, SELFPAY ==
--- NOTE | 2017-12-03 11:28 | XR_ITS ---
EXAM: XR cervical spine 5V HISTORY: ITS.REASON: RT ARM PAIN,CERVICAL DISC DISEASE,S/P CERVICAL SPINAL FUSION ORDERING PHYSICIAN: Ron Siegel MD PATIENT AGE: 56 years COMPARISON: 05/15/2016 FINDINGS: Prior anterior cervical disc fusion at C6-C7 with disc spacer and bone plate. Prominent anterior osteophyte at C5-C6 with anterior longitudinal ligament calcification at C4-C5. No fracture or dislocation. Mild facet hypertrophic changes are present with mild right foraminal narrowing at C2-C3 and mild left foraminal narrowing at C3-C4 and C4-C5. No fracture or dislocation. No lytic or blastic change. IMPRESSION: Postsurgical and degenerative changes as described above with mild right-sided foraminal narrowing at C2-C3 and left-sided foraminal narrowing at C3-C4 and C4-C5
== END ==
PROVIDERS: PCP Family Medicine; Visit Provider Family Medicine
DX: M79.601 Pain in right arm (principal); M50.90 Cervical disc disorder, unspecified, unspecified cervical region; Z98.1 Arthrodesis status
CPT/HCPCS: 72050

== ENCOUNTER → 2018-01-24 08:42 | Outpatient (CLI) | payer BC, SELFPAY ==
--- NOTE | 2018-01-24 08:45 | AS_ITS ---
Renal Arterial Duplex Indications: 405.91 Unspecified renovascular hypertension. IMPRESSIONS 1. The right renal artery appears normal. 2. The left renal artery appears normal. Complete renal arterial duplex. Duplex scan and Doppler flow study including spectral analysis, color and barakat scale imaging. Height: Height: 182.9cm. Height: 72in. Weight: Weight: 122.5kg. Weight: 269.4lb. Body mass index: BMI: 36.6kg/m^2. Body surface area: BSA: 2.54m^2. Location: Vascular laboratory. Patient status: Outpatient. Tables: Arterial flow: + +--------+--------+ Location V sys V ed + +--------+--------+ Right renal - proximal 102cm/s 32cm/s + +--------+--------+ Right renal - mid 84.4cm/s 24.6cm/s + +--------+--------+ Right renal - distal 69.3cm/s 24.4cm/s + +--------+--------+ Left renal - proximal 106cm/s 32.8cm/s + +--------+--------+ Left renal - mid 63.1cm/s 23.8cm/s + +--------+--------+ Left renal - distal 92.6cm/s 33.6cm/s + +--------+--------+ Left renal - Origin 107cm/s 31cm/s + +--------+--------+ Aorta - mid 77cm/s 14cm/s + +--------+--------+ Renal anatomy: + +------+------+ Left Right + +------+------+ Long axis 11.9cm 13.7cm + +------+------+ Short axis 5.8cm 6.8cm + +------+------+ Velocity ratios: + +-----+ V sys + +-----+ Right renal/aortic 1.3 + +-----+ Left renal/aortic 1.4 + +-----+ (Report amended ) Electronically signed by: Shawn Pozo [id number]
== END ==
PROVIDERS: Family Provider Family Medicine; PCP Family Medicine; Visit Provider Internal Medicine
DX: R94.31 Abnormal electrocardiogram [ECG] [EKG] (principal); I10 Essential (primary) hypertension; R60.9 Edema, unspecified; I25.10 Atherosclerotic heart disease of native coronary artery without angina pectoris; E78.4 Other hyperlipidemia; F17.200 Nicotine dependence, unspecified, uncomplicated
CPT/HCPCS: 93976

== ENCOUNTER → 2018-10-08 15:26 | Outpatient (POV) | payer BC, SELFPAY | PROVIDERS: Visit Provider Dermatology | DX: Z00.00 Encounter for general adult medical examination without abnormal findings (principal) ==

== ENCOUNTER → 2018-11-05 16:19 | Outpatient (CLI) | payer BC, SELFPAY ==
[2018-11-05 17:13] LABS: Basophils # 0.1 K/mm3 (0-0.2); Basophils % 0.6 % (0.1-2.0); Eosinophils # 0.2 K/mm3 (0.0-0.4); Eosinophils % 2.2 % (0.1-12.0); Hematocrit 44.8 % (42.0-52.0); Hemoglobin 15.5 g/dL (14.1-18.0); Lymphocytes # 3.3 K/mm3 (0.7-4.5); Lymphocytes % 41.4 % (10-50); Mean Corpuscular HGB Conc 34.5 g/dL (31.8-35.4); Mean Corpuscular Volume 92.7 fl (80-94); Mean Platelet Volume 8.1 fl (7.4-10.4); Monocytes # 0.6 K/mm3 (0.1-1.0); Monocytes % 8.1 % (1.7-9.3); Neutrophils # 3.8 K/mm3 (1.8-7.8); Neutrophils % 47.7 % (37.0-80.0); Platelet Count 242 K/mm3 (142-424); Red Blood Count 4.84 M/mm3 (4.60-6.20); Red Cell Distribution Width 13.6 % (11.5-17.5); White Blood Count 7.9 K/mm3 (4.8-10.8)
[2018-11-05 19:03] LABS: Alanine Aminotransferase 26 U/L (12-78); Albumin Level 4.1 gm/dL (3.4-5.0); Albumin/Globulin Ratio 1.1 (1.1-1.8); Alkaline Phosphatase 117 U/L (46-116); Anion Gap 12.9 mEq/L (5-15); Aspartate Amino Transferase 6 U/L (15-37); Bilirubin,Total 0.4 mg/dL (0.2-1.0); Blood Urea Nitrogen 18 mg/dL (7-18); Calcium 9.1 mg/dL (8.5-10.1); Carbon Dioxide 30 mmol/L (21.0-32.0); Chloride 102 mmol/L (98-107); Creatinine,Serum 1.13 mg/dL (0.70-1.30); Estimated Glomerular Filt Rate 66 ml/min (>60); GFR (African American) 80 ML/MIN (>60); Globulin 3.6 gm/dl (1.3-3.2); Glucose 90 mg/dL (74-106); Potassium 3.9 mmoL/L (3.5-5.1); Sodium 141 mmol/L (136-145); Total Protein,Serum 7.7 gm/dL (6.4-8.2)
[2018-11-05 19:05] LABS: Chol/HDL Ratio 5.3 (1-3.5); Cholesterol 139 mg/dL (140-200); HDL Cholesterol 26 mg/dL (27-67); LDL Cholesterol 76 mg/dL (0-130); Triglycerides 187 mg/dL (30-200); VLDL Cholesterol 37 mg/dL (0-40)
[2018-11-08 10:36] LABS: QuantiFERON-TB Gold Plus Negative (Negative)
== END ==
PROVIDERS: Physician Assistant; Visit Provider Dermatology
DX: E78.49 Other hyperlipidemia (principal); L40.0 Psoriasis vulgaris; Z79.899 Other long term (current) drug therapy
CPT/HCPCS: 36415; 80053; 80061; 85025; 86480

== ENCOUNTER → 2019-02-11 17:20 | Outpatient (CLI) | payer BC, SELFPAY ==
--- NOTE | 2019-02-11 17:51 | XR_ITS ---
PROCEDURE: XR ELBOW LT MIN 3V CLINICAL INDICATION: POLYARTHRITIS Elbow pain COMPARISON: No exams were available for comparison FINDINGS: No fracture or dislocation. No lytic or blastic change. There is normal mineralization. Mild osteoarthritic changes are present with mild hypertrophic change of the distal humerus and proximal ulna as well as the radial head and slight decrease in the joint space Other findings:None. IMPRESSION: Mild osteoarthritis Dictated by: Shawn Pozo MD 02/11/2019 18:45 Signed by: <Electronically signed by Shawn Pozo MD in [facility]> 02/11/2019 18:45
--- NOTE | 2019-02-11 17:51 | XR_ITS ---
PROCEDURE: XR SHOULDER RT MIN 2V CLINICAL INDICATION: POLYARTHRITIS Pain COMPARISON: XR SHOULDER LT MIN 2V from 02/11/2019 FINDINGS: Mild osteoarthritic changes are present at the acromioclavicular joint and glenohumeral joint IMPRESSION: Mild osteoarthritis Dictated by: Shawn Pozo MD 02/11/2019 18:41 Signed by: <Electronically signed by Shawn Pozo MD in [facility]> 02/11/2019 18:41
--- NOTE | 2019-02-11 17:51 | XR_ITS ---
PROCEDURE: XR ELBOW RT MIN 3V CLINICAL INDICATION: POLYARTHRITIS Pain COMPARISON: No exams were available for comparison FINDINGS: No fracture or dislocation. No lytic or blastic change. There is normal mineralization. There are mild osteoarthritic changes at the elbow joint with bony spurring, osteosclerosis, and slight decrease in the joint space. Bony spurring is present at the coracoid process. There is also some calcification within the soft tissues along the medial epicondyle which could be due to prior ligamentous injury. Other findings:None. IMPRESSION: Osteoarthritic change. Soft tissue calcification medially which may be due to old trauma Dictated by: Shawn Pozo MD 02/11/2019 18:47 Signed by: <Electronically signed by Shawn Pozo MD in [facility]> 02/11/2019 18:47
--- NOTE | 2019-02-11 17:51 | XR_ITS ---
PROCEDURE: XR SHOULDER LT MIN 2V CLINICAL INDICATION: POLYARTHRITIS Pain COMPARISON: No exams were available for comparison FINDINGS: There are mild osteoarthritic changes of the glenohumeral joint and acromioclavicular joint. No fracture or dislocation evident. No lytic or blastic change. No erosive process. IMPRESSION: Mild osteoarthritis Dictated by: Shawn Pozo MD 02/11/2019 18:39 Signed by: <Electronically signed by Shawn Pozo MD in [facility]> 02/11/2019 18:39
== END ==
PROVIDERS: PCP Nurse Practitioner Family; Visit Provider Nurse Practitioner Family
DX: M13.0 Polyarthritis, unspecified (principal)
CPT/HCPCS: 73030; 73080

== ENCOUNTER → 2019-03-08 07:39 | Outpatient (CLI) | payer BC, SELFPAY ==
[2019-03-08 08:52] LABS: Alanine Aminotransferase 25 U/L (12-78); Albumin Level 3.8 gm/dL (3.4-5.0); Alkaline Phosphatase 110 U/L (46-116); Aspartate Amino Transferase 12 U/L (15-37); Bilirubin,Direct 0.1 mg/dL (0.0-0.2); Bilirubin,Indirect 0.4 mg/dL (0.0-0.9); Bilirubin,Total 0.5 mg/dL (0.2-1.0); Chol/HDL Ratio 4.3 (1-3.5); Cholesterol 121 mg/dL (140-200); HDL Cholesterol 28 mg/dL (27-67); LDL Cholesterol 78 mg/dL (0-130); Total Protein,Serum 7.1 gm/dL (6.4-8.2); Triglycerides 73 mg/dL (30-200); VLDL Cholesterol 15 mg/dL (0-40)
== END ==
PROVIDERS: PCP Family Medicine; Visit Provider Internal Medicine Cardiovascular Disease
DX: E78.49 Other hyperlipidemia (principal); I10 Essential (primary) hypertension; I11.9 Hypertensive heart disease without heart failure; I25.10 Atherosclerotic heart disease of native coronary artery without angina pectoris; R94.31 Abnormal electrocardiogram [ECG] [EKG]; F17.200 Nicotine dependence, unspecified, uncomplicated
CPT/HCPCS: 36415; 80061; 80076

== ENCOUNTER → 2019-05-27 16:00 | Outpatient (POV) | payer BC, SELFPAY | PROVIDERS: Visit Provider Dermatology | DX: Z00.00 Encounter for general adult medical examination without abnormal findings (principal) ==

== ENCOUNTER → 2019-10-23 09:25 | Outpatient (CLI) | payer BC, SELFPAY ==
--- NOTE | 2019-10-23 09:32 | XR_ITS ---
PROCEDURE: XR KNEE RT 3V CLINICAL INDICATION: RT KNEE PAIN COMPARISON: KNEE3R KNEE-3 VIEWS-RT from 06/05/2017 FINDINGS: No fracture or dislocation. No lytic or blastic change. There is normal mineralization. There are mild osteoarthritic changes involving all 3 compartments greater at the medial compartment and patellofemoral joint. These findings have progressed somewhat compared to the previous exam. Other findings:None. IMPRESSION: Moderate osteoarthritic changes which have slightly progressed compared to the previous study Dictated by: Shawn Pozo MD 10/23/2019 12:15 Electronically signed by Shawn Pozo MD in [facility] 10/23/2019 12:15
--- NOTE | 2019-10-23 09:32 | XR_ITS ---
PROCEDURE: XR KNEE LT 3V CLINICAL INDICATION: LT KNEE PAIN COMPARISON: KNEE3R KNEE-3 VIEWS-RT from 06/05/2017 FINDINGS: There are mild osteoarthritic changes involving all 3 compartments. Small calcific densities are present at the popliteal fossa suggesting synovial osteochondromas. No fracture or dislocation IMPRESSION: Osteoarthritis with synovial osteochondromas/loose bodies in the popliteal fossa Dictated by: Shawn Pozo MD 10/23/2019 12:16 Electronically signed by Shawn Pozo MD in [facility] 10/23/2019 12:16
== END ==
PROVIDERS: PCP Family Medicine; Visit Provider Family Medicine
DX: M25.562 Pain in left knee (principal); M25.561 Pain in right knee
CPT/HCPCS: 73562

== ENCOUNTER → 2019-11-13 09:01 | Outpatient (CLI) | payer BC, SELFPAY ==
--- NOTE | 2019-11-13 09:09 | XR_ITS ---
PROCEDURE: XR KNEE LT 4V CLINICAL INDICATION: knee pain COMPARISON: KNEE3R KNEE-3 VIEWS-RT from 06/05/2017 XR KNEE RT 3V from 10/23/2019 XR KNEE LT 3V from 10/23/2019 FINDINGS: There are mild osteoarthritic changes involving all 3 compartments. No fracture or dislocation. There are several small calcific densities at the popliteal fossa region at the intercondylar aspect of the distal femur consistent with synovial osteochondromas. IMPRESSION: No change in the mild osteoarthritis of the left knee with synovial osteochondromas Dictated by: Shawn Pozo MD 11/13/2019 12:21 Electronically signed by Shawn Pozo MD in [facility] 11/13/2019 12:21
--- NOTE | 2019-11-13 09:09 | XR_ITS ---
PROCEDURE: XR KNEE RT 4V CLINICAL INDICATION: knee pain COMPARISON: KNEE3R KNEE-3 VIEWS-RT from 06/05/2017 XR KNEE RT 3V from 10/23/2019 XR KNEE LT 3V from 10/23/2019 FINDINGS: No fracture or dislocation. No lytic or blastic change. There is normal mineralization. Mild osteoarthritic changes involve all 3 compartments most severe at the medial compartment. Other findings:None. IMPRESSION: No change tricompartmental osteoarthritis Dictated by: Shawn Pozo MD 11/13/2019 12:22 Electronically signed by Shawn Pozo MD in [facility] 11/13/2019 12:22
== END ==
PROVIDERS: PCP Family Medicine; Visit Provider Orthopaedic Surgery
DX: M25.562 Pain in left knee (principal); M25.561 Pain in right knee
CPT/HCPCS: 73564

== ENCOUNTER → 2020-02-17 09:37 | Outpatient (POV) | payer BC, SELFPAY | PROVIDERS: Visit Provider Dermatology | DX: Z00.00 Encounter for general adult medical examination without abnormal findings (principal) ==

== ENCOUNTER → 2020-02-17 10:06 | Outpatient (POV) | payer BC, SELFPAY | PROVIDERS: Visit Provider Dermatology | DX: Z00.00 Encounter for general adult medical examination without abnormal findings (principal) ==

== ENCOUNTER → 2020-02-20 17:05 | Outpatient (CLI) | payer BC, SELFPAY ==
[2020-02-20 17:22] LABS: Basophils # 0.1 K/mm3 (0-0.2); Basophils % 0.6 % (0.1-2.0); Eosinophils # 0.3 K/mm3 (0.0-0.4); Eosinophils % 3.1 % (0.1-12.0); Hematocrit 43.1 % (42.0-52.0); Hemoglobin 15.6 g/dL (14.1-18.0); Lymphocytes # 3.4 K/mm3 (0.7-4.5); Lymphocytes % 33.3 % (10-50); Mean Corpuscular HGB Conc 36.3 g/dL (31.8-35.4); Mean Corpuscular Hemoglobin 34.5 pg (27.0-31.2); Mean Corpuscular Volume 95.1 fl (80-94); Mean Platelet Volume 8.8 fl (7.4-10.4); Monocytes # 0.9 K/mm3 (0.1-1.0); Monocytes % 8.4 % (1.7-9.3); Neutrophils # 5.6 K/mm3 (1.8-7.8); Neutrophils % 54.6 % (37.0-80.0); Platelet Count 217 K/mm3 (142-424); Red Blood Count 4.53 M/mm3 (4.60-6.20); Red Cell Distribution Width 14.1 % (11.5-17.5); White Blood Count 10.2 K/mm3 (4.8-10.8)
[2020-02-20 17:38] LABS: Microalbumin/Creatinine Ratio 4.9
[2020-02-20 17:39] LABS: Creatinine,Urine Random 156 mg/dL (Not Estab.)
[2020-02-20 18:15] LABS: Chol/HDL Ratio 5.1 (1-3.5); Cholesterol 133 mg/dl (140-200); HDL Cholesterol 26 mg/dl (40-60); Triglycerides 265 mg/dl (30-150); Uric Acid 5.4 mg/dl (3.5-8.5); VLDL Cholesterol 53 mg/dL (0-40)
[2020-02-20 18:15] LABS: Alanine Aminotransferase 20 U/L (12-78); Albumin Level 4.4 g/dl (3.5-5.0); Anion Gap 12.7 mEq/L (5-15); Aspartate Amino Transferase 21 U/L (17-59); Bilirubin,Total 0.4 mg/dl (0.2-1.3); Blood Urea Nitrogen 22 mg/dl (9-20); Calcium 9.4 mg/dl (8.4-10.2); Carbon Dioxide 33 mmol/L (22.0-30.0); Chloride 97 mmol/L (98-107); Estimated Glomerular Filt Rate 68 ml/min (>60); GFR (African American) 82 ML/MIN (>60); Globulin 2.8 g/dL (1.3-3.2); Glucose 89 mg/dl (74-100); Potassium 3.7 mmoL/L (3.5-5.1); Sodium 139 mmol/L (136-145); Total Protein,Serum 7.2 g/dl (6.3-8.2)
[2020-02-20 18:16] LABS: Albumin/Globulin Ratio 1.6 (1.1-1.8); Alkaline Phosphatase 106 U/L (38-126)
[2020-02-20 18:26] LABS: Direct LDL Cholesterol 77.26 mg/dL (100-129)
== END ==
PROVIDERS: Dermatology; Visit Provider Family Medicine
DX: I10 Essential (primary) hypertension (principal); M25.562 Pain in left knee; M25.561 Pain in right knee; L40.0 Psoriasis vulgaris; Z79.899 Other long term (current) drug therapy
CPT/HCPCS: 36415; 80053; 80061; 82043; 82570; 84550; 85025

== ENCOUNTER → 2020-10-05 16:32 | Outpatient (CLI) | payer BC, SELFPAY ==
[2020-10-05 17:38] LABS: Basophils # 0.1 K/mm3 (0-0.2); Basophils % 0.5 % (0.1-2.0); Eosinophils # 0.2 K/mm3 (0.0-0.4); Eosinophils % 2.3 % (0.1-12.0); Hematocrit 44.7 % (42.0-52.0); Hemoglobin 15.3 g/dL (14.1-18.0); Lymphocytes # 3.2 K/mm3 (0.7-4.5); Lymphocytes % 33.1 % (10-50); Mean Corpuscular HGB Conc 34.2 g/dL (31.8-35.4); Mean Corpuscular Hemoglobin 32.9 pg (27.0-31.2); Mean Corpuscular Volume 96.3 fl (80-94); Mean Platelet Volume 8.5 fl (7.4-10.4); Neutrophils # 5.2 K/mm3 (1.8-7.8); Platelet Count 200 K/mm3 (142-424); Red Blood Count 4.64 M/mm3 (4.60-6.20); Red Cell Distribution Width 14.5 % (11.5-17.5); White Blood Count 9.7 K/mm3 (4.8-10.8)
[2020-10-05 18:12] LABS: Alanine Aminotransferase 26 U/L (12-78); Albumin Level 4.4 g/dl (3.5-5.0); Albumin/Globulin Ratio 1.6 (1.1-1.8); Alkaline Phosphatase 99 U/L (38-126); Anion Gap 10.7 mEq/L (5-15); Aspartate Amino Transferase 25 U/L (17-59); Bilirubin,Total 0.4 mg/dl (0.2-1.3); Blood Urea Nitrogen 18 mg/dl (9-20); Calcium 9.6 mg/dl (8.4-10.2); Carbon Dioxide 28 mmol/L (22.0-30.0); Chloride 104 mmol/L (98-107); Estimated Glomerular Filt Rate 76 ml/min (>60); GFR (African American) 92 ML/MIN (>60); Globulin 2.7 g/dL (1.3-3.2); Glucose 88 mg/dl (74-100); Potassium 3.7 mmoL/L (3.5-5.1); Sodium 139 mmol/L (136-145); Total Protein,Serum 7.1 g/dl (6.3-8.2)
[2020-10-11 13:40] LABS: QuantiFERON-TB Gold Plus Negative (Negative)
== END ==
PROVIDERS: Visit Provider Dermatology
DX: L40.0 Psoriasis vulgaris (principal); Z79.899 Other long term (current) drug therapy
CPT/HCPCS: 36415; 80053; 85025; 86480

== ENCOUNTER → 2020-10-19 17:13 | Outpatient (CLI) | payer BC, SELFPAY ==
--- NOTE | 2020-10-19 17:26 | XR_ITS ---
PROCEDURE INFORMATION: Exam: XR Complete Acute Abdomen Series Exam date and time: 10/19/2020 5:26 PM Age: 59 years old Clinical indication: Abdominal pain; Patient HX: Left sided abd pain, constipation TECHNIQUE: Imaging protocol: XR complete acute abdomen series, including 2 or more views of the abdomen and a single view chest. COMPARISON: CR [id number] XR chest portable 11/20/2017 8:00 AM FINDINGS: Lungs: Granulomatous change. No consolidation. Pleural spaces: Normal. No pleural effusions. No pneumothorax. Heart/Mediastinum: cardiomegaly. Gastrointestinal tract: Normal. No bowel dilation. Intraperitoneal space: Normal. No free air. Bones/joints: Normal. No acute fracture. Soft tissues: Normal. Cholecystectomy. IMPRESSION: No acute findings.
== END ==
PROVIDERS: PCP Family Medicine; Visit Provider Nurse Practitioner Family
DX: R10.9 Unspecified abdominal pain (principal)
CPT/HCPCS: 74021

== ENCOUNTER → 2020-10-20 16:06 | Outpatient (CLI) | payer BC, SELFPAY ==
[2020-10-20 17:03] LABS: Blood Urea Nitrogen 18 mg/dl (9-20); Estimated Glomerular Filt Rate 76 ml/min (>60); GFR (African American) 92 ML/MIN (>60)
== END ==
PROVIDERS: Visit Provider Nurse Practitioner Family
DX: R10.9 Unspecified abdominal pain (principal)
CPT/HCPCS: 36415; 82565; 84520

== ENCOUNTER → 2020-10-21 11:36 | Outpatient (CLI) | payer BC, SELFPAY ==
--- NOTE | 2020-10-21 11:47 | CT_ITS ---
PROCEDURE: CT ABDOMEN PELVIS W CON CLINICAL INDICATION: ABD PAIN Poss hernia Luq area Coughed and felt severe pain last week COMPARISON: CT ABDPELW/O CT ABD PELVIS W/O CONTRAST from 04/27/2017 TECHNIQUE: IV Contrast: 75ML Isovue 370 Oral Contrast None Axial images obtained with sagittal and coronal reformats. All CT scans at the facility use one or more dose reduction, viz: automated exposure control, ma/kV adjustment per patient size (including targeted exams where dose is matched to indication, i.e. head), or iterative reconstruction technique. FINDINGS: LOWER THORAX: Mild atelectatic changes in the lung bases. Coronary artery calcifications are. ABDOMEN & PELVIS: 5 cm cyst is present in the hepatic. In a 4 mm hypodensity is left hepatic lobe. Mild hepatic steatosis. Prior cholecystectomy. The spleen, adrenal glands, and pancreas have an unremarkable appearance. 5 x 4 cm right renal cyst previously measuring 2.5 x 2.5 cm. No renal or ureteral calculi. No intestinal obstruction or free air. There are scattered colonic diverticula but no evidence of diverticulitis. No evidence of appendicitis. Mild prominence of prostate. There is a central 3 mm calcification within the prostate and may represent prostate glandular calcification or even a urethral stone. Urinary bladder has an unremarkable appearance. There is a tiny umbilical hernia containing fat. No other abdominal wall hernia apparent. There are degenerative changes in the lumbar spine IMPRESSION: 1. No acute finding. 2. Hepatic and right renal cysts. 3. Colonic diverticulosis without diverticulitis. 4. Small central prostate calcification which could be due glandular calcification or small urethral stone 5. Small umbilical hernia. No other abdominal wall hernia apparent Dictated by: Shawn Pozo MD 10/22/2020 06:37 Shawn Pozo MD in [facility] 10/22/2020 06:37
== END ==
PROVIDERS: PCP Family Medicine; Visit Provider Nurse Practitioner Family
DX: R10.9 Unspecified abdominal pain (principal)
CPT/HCPCS: 74177; Q9967

== ENCOUNTER → 2021-02-23 07:52 | Outpatient (CLI) | payer BC, SELFPAY ==
[2021-02-23 08:39] LABS: Basophils # 0.1 K/mm3 (0-0.2); Eosinophils # 0.2 K/mm3 (0.0-0.4); Eosinophils % 2.4 % (0.1-12.0); Hematocrit 48.8 % (42.0-52.0); Hemoglobin 16.2 g/dL (14.1-18.0); Lymphocytes % 28.5 % (10-50); Mean Corpuscular HGB Conc 33.2 g/dL (31.8-35.4); Mean Corpuscular Hemoglobin 32.9 pg (27.0-31.2); Mean Corpuscular Volume 99.1 fl (80-94); Mean Platelet Volume 9.2 fl (7.4-10.4); Monocytes # 0.6 K/mm3 (0.1-1.0); Monocytes % 9.2 % (1.7-9.3); Platelet Count 215 K/mm3 (142-424); Red Blood Count 4.92 M/mm3 (4.60-6.20); Red Cell Distribution Width 14.5 % (11.5-17.5); White Blood Count 6.9 K/mm3 (4.8-10.8)
[2021-02-23 09:47] LABS: Anion Gap 13.5 mEq/L (5-15); Blood Urea Nitrogen 15 mg/dl (9-20); Calcium 9.2 mg/dl (8.4-10.2); Carbon Dioxide 30 mmol/L (22.0-30.0); Chloride 103 mmol/L (98-107); Cholesterol 140 mg/dl (140-200); Estimated Glomerular Filt Rate 86 ml/min (>60); GFR (African American) 103 ML/MIN (>60); Glucose 109 mg/dl (74-100); HDL Cholesterol 28 mg/dl (40-60); Potassium 4.5 mmoL/L (3.5-5.1); Sodium 142 mmol/L (136-145); Triglycerides 136 mg/dl (30-150); VLDL Cholesterol 27 mg/dL (0-40)
[2021-02-23 09:58] LABS: Direct LDL Cholesterol 80.47 mg/dL (100-129)
[2021-02-23 10:18] LABS: Prostate Specific Ag Screen 1.1 ng/ml (0.0-4.0); Thyroid Stimulating Hormone 1.97 uIU/mL (0.465-4.68)
== END ==
PROVIDERS: Visit Provider Family Medicine
DX: I10 Essential (primary) hypertension (principal); Z12.5 Encounter for screening for malignant neoplasm of prostate
CPT/HCPCS: 36415; 80048; 80061; 84443; 85025; G0103

== ENCOUNTER → 2021-03-02 16:08 | Outpatient (CLI) | payer BC, SELFPAY ==
--- NOTE | 2021-03-02 | MR_ITS ---
PROCEDURE: MR LUMBAR SPINE WO CON CLINICAL INDICATION: Bilateral leg numbness with left leg pain COMPARISON: CT CT ABDOMEN PELVIS W CON from 10/21/2020 TECHNIQUE: Standard multiplanar multiecho sequences are performed without contrast. 3-D MIP and myelographic images are also rendered and reviewed FINDINGS: There is normal alignment. The spinal cord ends at the L1-L2 level. L1-L2: Degenerative disc disease with bulging disc. There is a broad based central and left paracentral disc osteophyte complex. This is causing severe left-sided lateral recess narrowing. There is moderate facet and ligamentum hypertrophy left greater than right contributing to the lateral recess narrowing. There is compression upon the central and left aspect the nerve roots just distal to the cauda equina. L2-L3: Degenerative disc disease with bulging disc and a broad based central disc osteophyte complex slightly eccentric toward the left with inferior disc extrusion along with facet and ligamentum hypertrophy with compression upon the nerve roots anteriorly and severe bilateral lateral recess narrowing slightly greater on the left. L3-L4: Bulging disc with partial disc ossification as seen on previous CT scan. Facet and ligamentum hypertrophic changes are present with severe bilateral lateral recess narrowing and mild bilateral foraminal narrowing. L4-5: Severe facet and ligamentum hypertrophic changes with bilateral lateral recess narrowing and moderate to severe right foraminal narrowing and moderate left foraminal narrowing. Canal stenosis at this level. L5-S1: Minimal bulging disc with facet and ligamentum hypertrophy with moderate right and mild left foraminal narrowing. There is a right renal cyst incompletely imaged measuring at least 4 cm. IMPRESSION: Abnormal MRI of the lumbar spine with multilevel degenerative disc disease along with facet and ligamentum hypertrophy and disc osteophyte complexes with bulging disc with lateral recess and foraminal narrowing with neural impingement. Please see above for detailed description at each level. Dictated by: Shawn Pozo MD 03/03/2021 08:07 Shawn Pozo MD in [place] 03/03/2021 08:07
== END ==
PROVIDERS: PCP Family Medicine; Visit Provider Family Medicine
DX: M54.42 Lumbago with sciatica, left side (principal); M54.41 Lumbago with sciatica, right side; R29.898 Other symptoms and signs involving the musculoskeletal system; G89.29 Other chronic pain
CPT/HCPCS: 72148; 76376

== ENCOUNTER → 2021-04-04 08:39 | Outpatient (POV) | payer BC, SELFPAY ==
[2021-04-04 09:18] VITALS: BP 158/81; PULSE 70; RESP 18; O2SAT 95; BMI 35.3
--- NOTE | 2021-04-04 12:11 | HMH.PMCON ---
Assessment and Plan (1) Lumbar radiculopathy Status: Chronic Category: Medical Code(s): M54.16 - Radiculopathy, lumbar region (2) Degenerative joint disease (DJD) of lumbar spine Status: Chronic Category: Medical Code(s): M47.816 - Spondylosis without myelopathy or radiculopathy, lumbar region (3) Facet arthropathy, lumbar Status: Chronic Category: Medical Code(s): M47.816 - Spondylosis without myelopathy or radiculopathy, lumbar region - Assessment and plan all Dx Assessment and Plan for all problems:: Patient is a 60-year-old white male who presents for chronic low back pain as well as bilateral lower extremity pain with numbness and tingling. He is also having weakness into his bilateral lower extremities. The patient has had physical therapy in the past along with home stretching, but has now developed new onset incontinence of bowel and bladder. Per the MRI report the patient does have compression upon the central and left aspect of the nerve roots just distal to the cauda equina, compression upon nerve roots anteriorly L2-L3, along with severe facet and ligamentum hypertrophic changes and foraminal narrowing?spinal stenosis. Due to the patient's new onset incontinence of bowel and bladder, we will immediately send the patient for neurosurgical evaluation. Patient has seen Dr. Kaye in the past. Dr. Kaye did perform cervical spine surgery on the patient years ago. The patient is not currently on any anticoagulation therapy. He has been taking gabapentin and Celebrex which have not given him any relief. The patient is continuing to try to work, but is having significant pain. We will give the patient medication short-term until he is able to see neurosurgery. If he is not considered a neurosurgical candidate, he may benefit from spinal cord stimulation versus intrathecal therapy in the future. We will order the patient [place] 5 mg 1 tablet p.o. twice daily for 1 month. We will see him back after his neurosurgical evaluation. Risks and benefits of the medication have been explained in detail to the patient. The patient does understand the risk of dependence on the medication when given over a prolonged period. Patient has been advised of risks of oversedation with the prescribed medication. Narcan has been offered to the paitent in the event of oversedation. Patient has been advised that a family member should also be educated regarding administration of Narcan. The patient has been advised to consult with his/her primary care provider and pharmacist regarding drug-drug interaction of medications currently prescribed. Patient has been prescribed a controlled substance after being counseled on the medication, medication safety, and possible side effects. MELVIN report has been obtained and reviewed prior to prescription and found to be appropriate. Opioid contract was reviewed and signed by the patient, and that they have agreed to all of the terms set forth by our compliance program. Patient has been instructed to contact the clinic with any concerns before the next appointment. Dr. Steel has reviewed this note and agrees with this plan of care. This note was dictated using voice recognition software and make contain errors or omissions. HPI - Data of Consult Patient: new to practice Consult date: 04/04/21 Requesting Physician: Lucy Topete APRN - Consult Narrative Reason for consult: Chronic low back pain History of present illness: Mr. Mcmillan is a 60 year old male who presents today for consultation for chronic low back pain. The patient was referred to us by Dr. Siegel. Patient says he has had chronic low back pain for years which is progressively worsened. He says that he is having pain into the low back with radiation into his lower extremities with legs giving out. He does rate his pain a 7 or an 8 out of 10. Patient says the pain has been ongoing for years, however, patient says he is
== END ==
PROVIDERS: Visit Provider Clinical Nurse Specialist Family Health
DX: M54.16 Radiculopathy, lumbar region (principal); M47.896 Other spondylosis, lumbar region
CPT/HCPCS: 99202; G0463

== ENCOUNTER → 2021-05-10 15:40 | Outpatient (POV) | payer BC, SELFPAY | PROVIDERS: Visit Provider Dermatology | DX: Z00.00 Encounter for general adult medical examination without abnormal findings (principal) ==

== ENCOUNTER → 2021-06-29 16:10 | Outpatient (CLI) | payer BC, SELFPAY | PROVIDERS: PCP Family Medicine; Visit Provider Nurse Practitioner | DX: Z20.822 Contact with and (suspected) exposure to COVID-19 (principal) | CPT/HCPCS: C9803; U0003; U0005 ==

== ENCOUNTER → 2021-07-04 15:10 | Outpatient (POV) | payer BC, SELFPAY ==
[2021-07-04 15:28] VITALS: BP 146/78; PULSE 78; RESP 18; O2SAT 100; BMI 38.6
--- NOTE | 2021-07-05 08:23 | P.CONS_ITS ---
HPI - Data of Consult Patient: new to practice Consult date: 07/04/21 Requesting Physician: Lucy Topete APRN - Consult Narrative Reason for consult: left low back pain History of present illness: Mr. Mcmillan is a 60 year old male CC: Lucy Topete APRN [facility] History Medical History: Reports:: Hypertension Denies:: Arrhythmia, Asthma, Atherosclerotic Heart Disease, BPH, Cancer, Chronic Obstructive Pulmonary Disease (COPD), Coronary Artery Disease, Cerebrovascular Accident, Dementia, Depression, Diabetes Mellitus Type 1, Diabetes Mellitus Type 2, Gastroesophageal Reflux Disease(GERD), MRSA *Have you ever received a pneumonia vaccine?: Yes *Have you received a flu vaccine this season?: Yes Other Medical History: Reports: Arthritis Laterality Cases: Left: Carpal Tunnel Release, Bilateral: Tonsillectomy Other Surgeries: Yes: Cholecystectomy, Colonoscopy, Other Amputation: No Fractures: No - *Social History Smoking Status: Current every day smoker Tobacco Type: cigarettes # Packs/Day (cigarettes): 10 Alcohol Intake: never Alcohol Intake Frequency:: other Substance Use Type: denies use *Occupational Status:: unemployed Housing: house Household Members: spouse *Travel in the last 8 weeks: None - Psychiatric History Pschychiatric History:: Denies:: Depression Family Hx:: Coronary Artery Disease Meds Home Medications Medication Instructions Recorded Confirmed Type Ustekinumab [Stelara] 90 mg SQ DIRECTED 11/20/17 11/13/19 History Aspirin [Aspir 81] 81 mg PO DAILY #30 tablet. 11/21/17 11/13/19 Rx carvediloL [Coreg 25mg Tablet] 25 mg PO BID #60 tab 11/21/17 11/13/19 Rx hydroCHLOROthiazide [HCTZ 25mg 25 mg PO BID #60 tab 11/21/17 11/13/19 Rx tab] ibuprofen 200 mg tablet 200 mg PO QID PRN 12/31/17 11/13/19 History lisinopril 20 mg tablet 20 mg PO DAILY #90 tab 12/31/17 11/13/19 Rx gabapentin 300 mg capsule 300 mg PO QID cap 01/28/18 11/13/19 History amlodipine 10 mg tablet 10 mg PO DAILY 01/17/19 11/13/19 History rosuvastatin 5 mg tablet 5 mg PO DAILY #30 tab 01/17/19 11/13/19 Rx Hydrocod/Acet 5/325 mg [[place] 1 tab PO BID PRN #60 tab 04/04/21 Rx 5/325mg tablet] Meloxicam 15 mg PO DAILY PRN #30 tab 04/04/21 Rx Meloxicam 7.5 mg PO DAILY #30 tab 07/04/21 Rx Allergies Allergy/AdvReac Type Severity Reaction Status Date / Time naproxen [From Aleve] Allergy Verified 11/13/19 09:57 atorvastatin AdvReac Severe Verified 11/13/19 09:57 Objective Vital signs: Pulse Resp BP Pulse Ox 78 18 146/78 H 100 07/04/21 15:28 07/04/21 15:28 07/04/21 15:28 07/04/21 15:28
--- NOTE | 2021-07-05 08:35 | HMH.PAINSOAP ---
[facility] Pain Management SOAP Note Subjective:: Patient is a 60 year old white male who is following up after a visit with dr. zaidi. Patient was last seen in our clinic on 04/04/2021. At that time he was reporting to have urinary and bowel incontinence which was new onset for the patient. We did send him to Dr. Zaidi. In the past, Dr. Zaidi has seen the patient and has performed cervical surgery on the patient due to herniated disc. Patient is having pain in his low back, and bilateral lower extremities. He does rate his pain on the left side at a 3 out of 10 and on the right side at this time a 2 out of 10. The pain is across his entire low back area. He does say that leaning forward gives him significant relief. At last visit, the patient was given [place] and meloxicam. He is no longer taking [place] due to constipation. Meloxicam gave him significant relief. He is continuing to take the medication. He has been referred to physical therapy and is currently undergoing physical therapy with minimal relief. He has also tried anti-inflammatories in the past with minimal relief. He does continue with home stretching. He has not had any recent injective therapy. He is continuing with bowel and bladder issues, however, does report meloxicam has helped with some of his symptoms. Review of Systems General: No recent weight changes, no fever, no sleep disturbances Respiratory: No cough, no shortness of air, no recurring pulmonary infections Cardiovascular/peripheral vascular: No chest pain, no palpitations, no edema, no shortness of breath Gastrointestinal: No new onset incontinence, normal bowel movements reported Genitourinary: No new onset incontinence Musculoskeletal: Low back pain with radiation into bilateral lower extremities, relieved when leaning forward Psychiatric: [Normal mood/affect] Neurological: [Denies weakness in extremities], [denies balance issues] Objective:: Physical exam General: Alert and oriented x3, no acute distress, pleasant and cooperative Lungs: Respirations even and unlabored, symmetrical chest expansion Eyes: PERRL Musculoskeletal: Flexion and extension of lumbar [spine] somewhat guarded secondary to pain, [antalgic gait noted] Neurological: Speech clear, no gross sensory deficit Assessment:: Degenerative disc disease lumbar spine with lumbar radiculopathy symptoms, spinal stenosis with neurogenic claudication symptoms Plan:: Patient was referred back to Dr. Zaidi due to bladder and fecal incontinence. Dr. Zaidi has referred the patient back to us for injective therapy. He is in physical therapy at this time with minimal relief. We will schedule patient for lumbar epidural steroid injection L4-L5. He is having neurogenic claudication type symptoms. He is getting relief when leaning forward as well. We will follow-up with patient after the injection for further evaluation. This will be his #1 injection. Patient says he is not on any anticoagulation therapy and is not diabetic. Possible side effects of corticosteroids have been discussed with the patient. Risks and benefits of the procedure have been explained to the patient. Patient would like to proceed with the procedure. Patient has been instructed to contact the clinic with any concerns before the next appointment. Dr. Steel has reviewed this note and agrees with this plan of care. This note was dictated using voice recognition software and make contain errors or omissions. [facility] History I have reviewed the patient's past medical history: Yes Medical History: Reports:: Hypertension Denies:: Arrhythmia, Asthma, Atherosclerotic Heart Disease, BPH, Cancer, Chronic Obstructive Pulmonary Disease (COPD), Coronary Artery Disease, Cerebrovascular Accident, Dementia, Depression, Diabetes Mellitus Type 1, Diabetes Mellitus Type 2, Gastroesophageal Reflux Disease(GERD), MRSA *Have you ever received a pneumonia vaccine?: Yes *Have you received a flu
== END ==
PROVIDERS: Visit Provider Clinical Nurse Specialist Family Health
DX: M51.16 Intervertebral disc disorders with radiculopathy, lumbar region (principal); M48.062 Spinal stenosis, lumbar region with neurogenic claudication
CPT/HCPCS: 99212; G0463

== ENCOUNTER 2021-07-22 13:36 | Day surgery (SDC) | payer BC, SELFPAY ==
[2021-07-22 13:50] VITALS: BP 172/97; PULSE 72; RESP 20; TEMP 36.8; O2SAT 97; BMI 37.3
[2021-07-22 14:18] VITALS: BP 170/80; PULSE 70; RESP 18; O2SAT 97
[2021-07-22 14:20] VITALS: PULSE 72; RESP 18; O2SAT 97
--- NOTE | 2021-07-22 14:23 | HMH.PMPROC ---
- Procedure Date: 07/22/21 Time: 14:23 Anesthesiologist:: Haroon Steel MD Complications:: None Pre-procedure Diagnosis:: Degenerative disc disease of lumbar spine with lumbar radiculopathy symptoms Post-procedure Diagnosis:: Same Indications for Procedure:: Patient is a pleasant 60-year-old white male who we are treating for low back pain with lumbar radiculopathy symptoms. He was having some bladder fecal incontinence so we did send him to Dr. Cohen. He was referred back to us for injective therapy. We will do a lumbar pleural steroid injection today at L4-5 to see if this helps with his pain symptoms. Procedure Details:: Informed consent was obtained and the risk and benefits of the procedure was explained to the patient. The patient was taken to the procedure room. The patient was placed prone on the procedure table. The patient was prepped and draped in sterile fashion. C-arm fluoroscopy was used to view the lumbar spine. Skin and subcutaneous tissues were anesthetized using lidocaine. I placed an 18-gauge epidural needle and advanced into the L4-L5 interspace using fluoroscopic guidance and [id number] to air. After confirmation of needle placement in the epidural space with dye I injected 2 mL of lidocaine 1.5% with Depo-Medrol 80 mg. Patient tolerated the procedure well with no complications. Plan and Disposition:: We will follow-up with her in 2 weeks. Will reevaluate symptoms at that time.
[2021-07-22 14:33] VITALS: BP 168/98; PULSE 71; RESP 20; O2SAT 98
== END 2021-07-22 14:34 | disposition home or self-care (01) ==
PROVIDERS: PCP Family Medicine; Visit Provider Anesthesiology
DX: M51.16 Intervertebral disc disorders with radiculopathy, lumbar region (principal); I10 Essential (primary) hypertension
CPT/HCPCS: 62323; Q9966

== ENCOUNTER 2021-08-04 16:00 | Outpatient (RCR) | payer BC, SELFPAY | END 2021-08-04 16:05 | disposition home or self-care (01) | LOC: PT 16:00 | PROVIDERS: PCP Family Medicine; Visit Provider Physician Assistant | DX: M54.50 Low back pain, unspecified (principal) | CPT/HCPCS: 97010; 97012; 97014; 97110; 97140; 97163; 97164; G0283 ==

== ENCOUNTER → 2021-08-08 16:10 | Outpatient (CLI) | payer BC, SELFPAY | PROVIDERS: PCP Family Medicine; Visit Provider Nurse Practitioner | DX: U07.1 COVID-19 (principal) | CPT/HCPCS: C9803; U0003; U0005 ==

== ENCOUNTER → 2022-05-16 13:37 | Outpatient (CLI) | payer BC, SELFPAY ==
[2022-05-16 15:14] LABS: Alanine Aminotransferase 19 U/L (12-78); Albumin Level 4.7 g/dl (3.5-5.0); Alkaline Phosphatase 118 U/L (38-126); Anion Gap 15.2 mEq/L (5-15); Aspartate Amino Transferase 23 U/L (17-59); Bilirubin,Total 0.5 mg/dl (0.2-1.3); Blood Urea Nitrogen 26 mg/dl (9-20); Carbon Dioxide 33 mmol/L (22.0-30.0); Chloride 100 mmol/L (98-107); Estimated Glomerular Filt Rate 68 ml/min (>60); GFR (African American) 82 ML/MIN (>60); Globulin 2.4 g/dL (1.3-3.2); Glucose 85 mg/dl (74-100); Potassium 4.2 mmoL/L (3.5-5.1); Sodium 144 mmol/L (136-145); Total Protein,Serum 7.1 g/dl (6.3-8.2)
[2022-05-16 15:17] LABS: Basophils # 0.1 K/mm3 (0-0.2); Basophils % 1.2 % (0.1-2.0); Eosinophils # 0.2 K/mm3 (0.0-0.4); Eosinophils % 2.1 % (0.1-12.0); Hematocrit 47.7 % (42.0-52.0); Hemoglobin 15.5 g/dL (14.1-18.0); Lymphocytes # 2.9 K/mm3 (0.7-4.5); Mean Corpuscular HGB Conc 32.4 g/dL (31.8-35.4); Mean Corpuscular Hemoglobin 31.9 pg (27.0-31.2); Mean Corpuscular Volume 98.4 fl (80-94); Mean Platelet Volume 9.2 fl (7.4-10.4); Monocytes # 0.9 K/mm3 (0.1-1.0); Monocytes % 9.3 % (1.7-9.3); Neutrophils # 5.9 K/mm3 (1.8-7.8); Neutrophils % 58.4 % (37.0-80.0); Platelet Count 227 K/mm3 (142-424); Red Blood Count 4.85 M/mm3 (4.60-6.20); Red Cell Distribution Width 15.1 % (11.5-17.5); White Blood Count 10.1 K/mm3 (4.8-10.8)
[2022-05-19 17:38] LABS: QuantiFERON-TB Gold Plus Negative (Negative)
== END ==
PROVIDERS: PCP Family Medicine; Visit Provider Dermatology
DX: L40.0 Psoriasis vulgaris (principal); Z79.899 Other long term (current) drug therapy
CPT/HCPCS: 36415; 80053; 85025; 86480

== ENCOUNTER 2022-06-09 10:00 | Outpatient (RCR) | payer BC, SELFPAY | END 2022-06-09 10:05 | disposition home or self-care (01) | LOC: PT 10:00 | PROVIDERS: PCP Family Medicine; Visit Provider Orthopaedic Surgery | DX: M25.562 Pain in left knee (principal); Z96.652 Presence of left artificial knee joint | CPT/HCPCS: 97010; 97014; 97110; 97112; 97116; 97140; 97163; 97164; 97530; G0283 ==

== ENCOUNTER → 2023-02-07 14:26 | Outpatient (POV) | payer BC, SELFPAY ==
[2023-02-07 15:21] VITALS: BP 158/89; PULSE 69; RESP 20; O2SAT 95; BMI 36.3
--- NOTE | 2023-02-07 16:52 | EXP.PAIN.OV ---
HPI Data of Consult Patient: new to practice Consult date: 02/07/23 Requesting Physician: Amanda Garcia APRN Consult Narrative Reason for consult: Neck pain, bilateral arm numbness and tingling, low back pain, bilateral le History of present illness: Mr. Mcmillan is a 62 year old male who presents today as a new patient. He is a referral from [facility]. Today he rates his pain a 7 out of 10. Patient states he has pain at multiple areas of his spine including his neck and low back. Patient states this has been going on for years and progressively worsened over time. Patient has had a ACDF of C6-C[place] [address] Cohen as well as a L1-L4 laminectomy that was performed by Dr. Cohen last year. Patient does describe his pain as an aching, throbbing sensation with numbness or feeling like his hands and feet are on fire. Patient does state that it affects his ability perform activities of daily living such as cooking or cleaning or even simple ambulation. Patient states he has no quality of life and that at this time he was sent for physical therapy and to our office for evaluation. He states that Dr. Cohen has not mentioned whether or not additional surgical intervention is needed. Patient does state that the physical therapist is planning on starting lower lumbar traction coming up. Patient does also state that frequently his legs will give out and he will fall. Patient has tried [id number]-phi-zanzpil medications such as Tylenol and ibuprofen along with heat and ice and topicals with no additional relief. Patient is currently prescribed gabapentin 300 mg twice a day, meloxicam 15 mg daily. Patient denies any side effects from this medication. He states the medication really does not make much of a difference. He has tried oxycodone in the past. He is interested in any additional improvement we may be able to provide. His [place] is [phone]. Its been reviewed and appropriate. CC: Amanda Garcia APRN [facility] Disclaimer: The information contained in this section may have been updated after the patient was seen, as this information can be updated by other users. Medical History (Updated 02/07/23 @ 17:01 by Amanda Garcia APRN) Arthritis CAD (coronary artery disease) HHD (hypertensive heart disease) HLD (hyperlipidemia) VALENTINE (obstructive sleep apnea) Surgical History (Updated 02/07/23 @ 15:28 by Carri Acuña RN) History of cholecystectomy History of lumbar laminectomy Hx of fusion of cervical spine Family History (Updated 02/07/23 @ 15:29 by Carri Acuña RN) Other Arthritis Diabetes Prostate cancer Social History (Updated 02/07/23 @ 15:29 by Carri Acuña RN) Smoking Status: Current every day smoker tobacco type: cigarettes packs per day: 1 alcohol intake: never substance use type: denies use current occupational status: other Travel in the last 8 weeks: None household members: spouse housing: house current occupational exposures/hazards: No Review of Systems Review of Systems Review of systems:: pertinent systems reviewed and negative unless documented below Review of systems (narrative): Review of Systems: General: No recent weight changes, no fever, no sleep disturbances Respiratory: No cough, no shortness of air, no recurring pulmonary infections Cardiovascular/peripheral vascular: No chest pain, no palpitations, no edema, no shortness of breath Gastrointestinal: No new onset incontinence, normal bowel movements reported Genitourinary: No new onset incontinence Musculoskeletal: Neck pain, bilateral arm pain, low back pain, bilateral leg pain Psychiatric: [Normal mood/affect] Neurological: [Denies weakness in extremities], [denies balance issues] Meds Home Medications and Allergies Home Medications Medication Instructions Recorded Confirmed Type ustekinumab 90 mg/mL subcutaneous 90 mg SQ DIRECTED PSORIASIS 11/20/17 07/22/21 History syringe gabapentin 300 mg cap
== END ==
PROVIDERS: Visit Provider Nurse Practitioner Family
DX: M47.26 Other spondylosis with radiculopathy, lumbar region (principal); M50.10 Cervical disc disorder with radiculopathy, unspecified cervical region; M48.02 Spinal stenosis, cervical region; M48.062 Spinal stenosis, lumbar region with neurogenic claudication; M51.34 Other intervertebral disc degeneration, thoracic region; G89.4 Chronic pain syndrome
CPT/HCPCS: 99202; G0463

== ENCOUNTER 2023-02-20 12:59 | Day surgery (SDC) | payer BC, SELFPAY ==
[2023-02-20 13:04] VITALS: BP 155/93; PULSE 71; RESP 18; O2SAT 97
[2023-02-20 17:00] VITALS: BP 142/77; BP 161/81; PULSE 68; PULSE 72; RESP 20; TEMP 36.3; O2SAT 93; BMI 36.2
--- NOTE | 2023-02-21 10:32 | PC.NURSE ---
care occurred on 02/20/23 between [id number]. d/t computer issue, it is unable to be documented under the exact time
--- NOTE | 2023-02-27 12:55 | P.PCN_ITS ---
Procedure Date: 02/20/23 Time: 13:30 Anesthesiologist:: Jameson Guzman CRNA Complications:: None Pre-procedure Diagnosis:: Degenerative disc disease cervical spine. Cervical radiculopathy. Post-procedure Diagnosis:: Same. Indications for Procedure:: Patient is a very pleasant 62-year-old male that comes our clinic today for cervical epidural steroid injection at the C6-7 level. Patient complains of cervical neck pain as well as bilateral arm radicular symptoms. He rates his pain 7/10. Patient cervical MRI shows multilevel degenerative disc cervical spine. Multilevel cervical disc bulge cervical spine. Procedure Details:: Procedure:Cervical epidural steroid injection Informed consent was obtained and the risks and benefits of the procedure were explained to the patient. The patient was taken to the procedure room and noninvasive monitors placed, including noninvasive blood pressure cuff and pulse oximeter. The neck was prepped using Chloraprep as a cleansing solution. The C6- C7 interspace was viewed using fluroscopy. The skin and subcutaneous tissues were anesthetized using lidocaine 1.5% and a 25-gauge needle. After this an 18- gauge Touhy epidural needle was placed into the C6-C7 interspace under fluroscopy guidance and advanced using loss of resistance to air until the epidural space was encountered. After confirmation of needle placement in the epidural space using contrast dye, a solution containing normal saline, 2 mL and Depo-Medrol 80 mg was incrementally injected into the cervical epidural space.~ The patient tolerated the procedure well with no complications. The patient was observed in the Pain Clinic and then discharged home neurologically intact. Plan and Disposition:: Patient was discharged without incident.
== END 2023-02-20 13:20 | disposition home or self-care (01) ==
LOC: SC.PAINP 02-21 07:15
PROVIDERS: PCP Family Medicine; Visit Provider Nurse Anesthetist, Certified Registered
DX: M50.123 Cervical disc disorder at C6-C7 level with radiculopathy (principal)
CPT/HCPCS: 62321; J1040; Q9966

== ENCOUNTER 2023-02-23 15:00 | Outpatient (RCR) | payer BC, SELFPAY | END 2023-02-23 15:05 | disposition home or self-care (01) | LOC: PT 15:00 | PROVIDERS: PCP Family Medicine; Visit Provider Neurological Surgery | DX: M54.50 Low back pain, unspecified (principal); M54.16 Radiculopathy, lumbar region | CPT/HCPCS: 97110; 97163; 97164; 97535 ==

== ENCOUNTER → 2023-03-14 13:57 | Outpatient (POV) | payer BC, SELFPAY ==
[2023-03-14 15:41] VITALS: BP 151/92; PULSE 77; RESP 18; O2SAT 94; BMI 36.2
--- NOTE | 2023-03-14 16:40 | EXP.PAIN.SOA ---
[facility] Pain Management SOAP Note Subjective:: Patient is a pleasant 62-year-old male who presents today for follow-up of cervical epidural steroid injection C6-C7 on 02/20/2023. We are currently treating the patient for degenerative disc disease of cervical and lumbar spine with cervical and lumbar radiculopathy symptoms, lumbar spinal stenosis, cervical spinal stenosis, chronic pain syndrome. Today he rates his pain a 6 out of 10. Patient states he had no additional improvement of his numbness and burning into his bilateral hands following this injection. Patient states today he still continues to have chronic neck pain as well. He also states that his low back continues to be an issue. Patient had been going to physical therapy however he states he has now been discharged due to having no additional improvement. Patient states he did go to 8 different visits. Patient does have a history of ACDF done by Dr. Cohen in 2014 and a laminectomy in the lumbar spine done by Dr. Cohen last year. Patient states he is scheduled for a follow-up appointment with Dr. Cohen coming up to review whether or not he recommends any additional surgical intervention. Patient is currently managed with gabapentin 300 mg twice a day, meloxicam 15 mg daily. Patient denies any side effects from this medication. He was prescribed compounding cream at our last visit. His Bryan is [phone]. Its been reviewed and appropriate. Review of Systems: General: No recent weight changes, no fever, no sleep disturbances Respiratory: No cough, no shortness of air, no recurring pulmonary infections Cardiovascular/peripheral vascular: No chest pain, no palpitations, no edema, no shortness of breath Gastrointestinal: No new onset incontinence, normal bowel movements reported Genitourinary: No new onset incontinence Musculoskeletal: Bilateral hand numbness/tingling, neck pain, low back pain Psychiatric: [Normal mood/affect] Neurological: [Denies weakness in extremities], [denies balance issues] Objective:: Physical Exam: General: Alert and oriented x3, no acute distress, pleasant and cooperative Lungs: Respirations even and unlabored, symmetrical chest expansion Eyes: PERRL Musculoskeletal: Flexion and extension of cervical, lumbar [spine] somewhat guarded secondary to pain, [antalgic gait noted] Neurological: Speech clear, no gross sensory deficit Assessment:: Degenerative disc disease of cervical and lumbar spine with cervical and lumbar radiculopathy symptoms, lumbar spinal stenosis, cervical spinal stenosis, chronic pain syndrome, postlaminectomy syndrome lumbar spine, status post cervical fusion, chronic pain syndrome Plan:: Did forPatient continues to have significant pain at multiple areas of motion of his cervical and lumbar spine. I have discussed with the patient due to his continued numbness and tingling into his bilateral hands that this may be more related to carpal tunnel syndrome. Patient does state that he did previously have left carpal tunnel surgery done by Dr. Cohen that did improve his symptoms however over time they did progressively go back to what they were. He states he has had EMG tests done by Dr. Lange and other providers that did state that he had positive bilateral carpal tunnel syndrome. He does state that he was scheduled to have a right carpal tunnel surgery however this was postponed due to COVID and he had never gone back up to reschedule this. I have also discussed with the patient that I highly recommend him to review over his cervical and lumbar imaging with Dr. Cohen for evaluation for future surgical intervention. I have also discussed with the patient to let us know at any time if he would like any additional referrals for additional evaluation. I have also discussed with the patient in future he may benefit from additional epidurals both at his cervical and lumbar spine however we will wait and follow-up after his appointment with Dr. Lyons to decide whether to
== END ==
PROVIDERS: Visit Provider Nurse Practitioner Family
DX: M50.10 Cervical disc disorder with radiculopathy, unspecified cervical region (principal); M48.02 Spinal stenosis, cervical region; M51.16 Intervertebral disc disorders with radiculopathy, lumbar region; M48.061 Spinal stenosis, lumbar region without neurogenic claudication; G89.4 Chronic pain syndrome; M96.1 Postlaminectomy syndrome, not elsewhere classified; M43.22 Fusion of spine, cervical region; G56.03 Carpal tunnel syndrome, bilateral upper limbs
CPT/HCPCS: 99212; G0463

== ENCOUNTER → 2023-06-20 08:00 | Outpatient (CLI) | payer BC, SELFPAY ==
[2023-06-20 08:25] LABS: Basophils # 0.1 K/mm3 (0-0.2); Eosinophils # 0.2 K/mm3 (0.0-0.4); Eosinophils % 1.8 % (0.1-12.0); Hematocrit 48.1 % (42.0-52.0); Hemoglobin 16.7 g/dL (14.1-18.0); Lymphocytes # 2.1 K/mm3 (0.7-4.5); Lymphocytes % 23.2 % (10-50); Mean Corpuscular HGB Conc 34.7 g/dL (31.8-35.4); Mean Corpuscular Hemoglobin 33.6 pg (27.0-31.2); Mean Corpuscular Volume 96.7 fl (80-94); Mean Platelet Volume 8.9 fl (7.4-10.4); Monocytes # 0.8 K/mm3 (0.1-1.0); Monocytes % 8.4 % (1.7-9.3); Neutrophils # 5.9 K/mm3 (1.8-7.8); Neutrophils % 65.7 % (37.0-80.0); Platelet Count 194 K/mm3 (142-424); Red Blood Count 4.98 M/mm3 (4.60-6.20); Red Cell Distribution Width 15.2 % (11.5-17.5)
[2023-06-20 09:06] LABS: Alanine Aminotransferase 28 U/L (12-78); Albumin Level 4.5 g/dl (3.5-5.0); Albumin/Globulin Ratio 1.7 (1.1-1.8); Alkaline Phosphatase 106 U/L (38-126); Anion Gap 7.6 mEq/L (5-15); Aspartate Amino Transferase 24 U/L (17-59); Bilirubin,Total 0.6 mg/dl (0.2-1.3); Blood Urea Nitrogen 16 mg/dl (9-20); Carbon Dioxide 27 mmol/L (22.0-30.0); Chloride 104 mmol/L (98-107); Estimated Glomerular Filt Rate 85 ml/min (>60); GFR (African American) 103 ML/MIN (>60); Globulin 2.7 g/dL (1.3-3.2); Glucose 109 mg/dl (74-100); Potassium 3.6 mmoL/L (3.5-5.1); Sodium 135 mmol/L (136-145); Total Protein,Serum 7.2 g/dl (6.3-8.2)
[2023-06-23 00:04] LABS: QuantiFERON-TB Gold Plus Negative (Negative)
== END ==
LOC: LAB 08:01
PROVIDERS: PCP Family Medicine; Visit Provider Dermatology
DX: L40.0 Psoriasis vulgaris (principal); Z79.899 Other long term (current) drug therapy
CPT/HCPCS: 36415; 80053; 85025; 86480

== ENCOUNTER 2023-08-21 09:26 | Outpatient (POV) | payer BC, SELFPAY | END 2023-08-21 23:59 | disposition home or self-care (01) | LOC: SC 09:26 | PROVIDERS: PCP Family Medicine; Visit Provider Dermatology | DX: Z00.00 Encounter for general adult medical examination without abnormal findings (principal) ==

== ENCOUNTER 2024-07-22 09:37 | Outpatient (CLI) | payer MEDICARE, OTHER, SELFPAY ==
[2024-07-24 20:09] LABS: QuantiFERON-TB Gold Plus Negative (Negative)
== END 2024-07-22 23:59 | disposition home or self-care (01) ==
LOC: LAB 09:40
PROVIDERS: PCP Family Medicine; Visit Provider Dermatology
DX: L40.0 Psoriasis vulgaris (principal)
CPT/HCPCS: 36415; 86480

== ENCOUNTER 2024-07-25 10:00 | Outpatient (RCR) | payer MEDICARE, OTHER, SELFPAY | END 2024-07-25 23:59 | disposition home or self-care (01) | LOC: PT 10:00 | PROVIDERS: Visit Provider Psychiatry & Neurology Neurology | DX: M54.50 Low back pain, unspecified (principal) | CPT/HCPCS: 97014; 97110; 97112; 97140; 97163; 97530; G0283 ==

== ENCOUNTER 2024-08-15 10:00 | Outpatient (RCR) | payer MEDICARE, OTHER, SELFPAY | END 2024-08-22 23:59 | disposition home or self-care (01) | LOC: PT 10:00 | PROVIDERS: Visit Provider Psychiatry & Neurology Neurology | DX: M54.50 Low back pain, unspecified (principal) | CPT/HCPCS: 97014; 97110; 97112; 97116; 97530; G0283 ==

== ENCOUNTER 2025-03-18 07:38 | Day surgery (SDC) | payer MEDICARE, OTHER, SELFPAY ==
[2025-03-10 12:59] VITALS: BMI 38.0
--- NOTE | 2025-03-15 12:04 | EXP.HP ---
History of Present Illness *Admission Date: 03/18/25 *History of present illness: Mr. Mcmillan is a 64-year-old gentleman who is here for screening colonoscopy. His last colonoscopy was 15 years ago. The patient has had prior cholecystectomy and hemorrhoidectomy. He does have some intermittent diarrhea. The examination is deemed medically necessary for screening colonoscopy. The patient has been seen, interviewed and examined prior to the procedure by both myself and the anesthesia provider. [facility] Disclaimer: The information contained in this section may have been updated after the patient was seen, as this information can be updated by other users. Medical History Gout VALENTINE (obstructive sleep apnea) Arthritis HLD (hyperlipidemia) HHD (hypertensive heart disease) CAD (coronary artery disease) Surgical History History of total left knee replacement History of lumbar laminectomy Hx of fusion of cervical spine History of cholecystectomy Family History Other Arthritis Diabetes Prostate cancer Social History Smoking Status: Current every day smoker tobacco type: cigarettes packs per day: 1 alcohol intake: never substance use type: denies use current occupational status: other Travel in the last 8 weeks?: None household members: spouse housing: house current occupational exposures/hazards: No Have you lived/traveled outside US in past 30 days?: No Contact w/someone who lives/traveled outside US past 30 days?: No Exposure to someone with infectious disease in past 14 days?: No Do you have a fever (greater than 100.4 F or 38 C)?: No Have you tested positive for COVID-19?: No Exposed to someone with COVID-19 in past 14 days?: No Do you have a sore throat?: No Do you have a cough?: No Do you have any weakness?: No Do you have any diarrhea?: No Are you experiencing any unusual bleeding?: No Do you have any muscle aches/pain?: No Do you have any abdominal pain?: No Are you experiencing loss of taste or smell?: No Other Medical History Have you received the Flu Vaccine for this season: Yes Have you received the Pneumonia Vaccine: No Review of Systems Review of Systems Review of systems (narrative): Negative *Cardiovascular Comments: Negative *Gastrointestinal Comments: Negative *Genitourinary Comments: Negative *Musculoskeletal Comments: Negative *Neurologic Comments: Negative Meds Home Medications and Allergies Home Medications ?Medication ?Instructions ?Recorded ?Confirmed ?Type amlodipine 10 mg tablet (Norvasc) 10 mg PO DAILY blood pressure 01/17/19 03/18/25 History carvedilol 25 mg tablet 25 mg PO BID blood pressure 07/22/21 03/18/25 History duloxetine 30 mg capsule,delayed 30 mg PO DAILY 03/10/25 03/18/25 History release duloxetine 60 mg capsule,delayed 60 mg PO DAILY 03/10/25 03/18/25 History release guselkumab 100 mg/mL subcutaneous 100 mg SQ MONTHLY 03/10/25 03/18/25 History auto-injector (Tremfya) pregabalin 100 mg capsule 100 mg PO BID 03/10/25 03/18/25 History allopurinol 300 mg tablet 300 mg PO DAILY 03/18/25 03/18/25 History New Prescriptions to Start Prescriptions: Allergies Allergy/AdvReac Type Severity Reaction Status Date / Time naproxen (From Aleve) Allergy Hives Verified 03/18/25 08:03 atorvastatin AdvReac Severe Other Verified 03/18/25 08:03 Exam *Routine HEENT Exam Head: Present normocephalic Eye: Present EOMI and PERRL ENT: Present mucous membranes moist *Routine Neck Exam Neck: Present supple *Routine Respiratory Exam Respiratory: Present CTA bilaterally *Routine Cardiovascular Exam Cardiovascular: Present RRR *Routine Abdominal Exam Abdominal: Present soft and normoactive bowel sounds; Absent tenderness *Routine Rectal Exam Rectal:: deferred *Routine Genitalia Exam Genitalia:: deferred *Routine Extremities Exam Extremities: Absent cyanosis, clubbing or edema *Routine Skin Exam Skin: Present warm; Absent rash *Routine Neurological Exam Neurological: Present alert and oriented X3 Assessment and Plan *Assessment and plan (1) Screening for colon cancer: Status: Acute Category: Medical Code(s): Z12.11 - Encounter for screening for malignant neoplasm of colon Plan A/P: 1. Screening for colon cancer is the preprocedural diagnosis. The patient will be anesthetized/sedated using MAC sedation. The patient has been seen and examined. Cardiac and lung assessment prior to the examination is stable. Proceed with planned screening colonoscopy.
--- NOTE | 2025-03-18 07:03 | P.PCN_ITS ---
[facility] Procedure Note Date: 03/18/25 Time: 09:32 Procedure Note:: Colonoscopy Procedure Report: Colonoscopy with cold biopsies and cold snare polypectomy Endoscopist: Jaxson Shaffer II, MD Referring physician: Ron Siegel MD Date of Procedure: March 18, 2025 Equipment: Olympus [id number] adult colonoscope Sedation: MAC sedation Indication: Mr. Mcmillan is a 64-year-old gentleman who is here for screening colonoscopy. His last colonoscopy was 15 years ago. The patient has had prior cholecystectomy and hemorrhoidectomy. The patient does have chronic diarrhea with loose or watery stools. He reports some bowel urgency and bowel frequency with excessive wiping. He reports no gassiness or bloating. He has had no rectal bleeding or mucus with his bowel movements. He reports no weight loss or family history of colon cancer. He does have diastases of the rectus abdominis tendon. The examination is deemed medically necessary for screening colonoscopy. Procedure: Prior to the procedure, a history and physical exam was performed, and patient's medications and allergies were reviewed. The risks, benefits and alternatives of the sedation and procedure were discussed with the patient. All questions were answered and informed consent was obtained. The patient was brought to the procedure room. Patient identification and proposed procedure were verified by the physician and the nurse. The patient was placed in a left lateral decubitus position and the scope was passed under direct vision. Throughout the procedure, the patient's blood pressure, pulse, and oxygen saturations were monitored continuously. The colonoscopy was accomplished without difficulty. The patient tolerated the procedure well. Findings: On digital rectal examination there was normal rectal tone. There were no external hemorrhoids. The prostate was 2+, moderately firm but symmetric without nodules. The colonoscope was introduced through the anal canal to the rectum and advanced to the cecum. The ileocecal valve and appendiceal orifice were identified. The scope was advanced a short distance into the ileum which appeared grossly normal. The scope was then withdrawn into the colon. There were 2 polyps (transverse x 1 (5 mm) and rectosigmoid x 1 (4 mm)). Both of these were removed via cold snare polypectomy. Random biopsies were taken from the right colon to rule out microscopic colitis. The remaining cecum, ascending and transverse colon and mucosa were grossly normal. There were scattered diverticuli throughout the descending and sigmoid colon (LEFT colon). The rectum itself was normal. Upon retroflexion within the rectum there were grade 2 internal hemorrhoids. The preparation was excellent throughout with [place] Preparation Score of 9. The cecal time was 14 minutes. Impression: 1. Diminutive colonic polyps x 2 2. Left-sided diverticulosis 3. Grade 2 internal hemorrhoids Plan: I will follow-up the polyp histology and recommend repeat screening/surveillance colonoscopy again in 7 years if the polyps are adenomatous. I will follow-up the random biopsies. I would recommend dietary measures and bulking FiberCon today (2 tablets every a.m.). If the biopsies are normal, I would consider adding Colestid at bedtime.
[2025-03-18 08:08] VITALS: BP 140/82; PULSE 69; RESP 17; TEMP 36.1; O2SAT 95
[2025-03-18] MEDS: LACTATED RINGERS 1000ML 1,000 ML 50 ML IV (08:15)
--- NOTE | 2025-03-18 08:24 | P.PNANES_ITS ---
[facility] Disclaimer: The information contained in this section may have been updated after the patient was seen, as this information can be updated by other users. Medical History Gout VALENTINE (obstructive sleep apnea) Arthritis HLD (hyperlipidemia) HHD (hypertensive heart disease) CAD (coronary artery disease) Surgical History History of total left knee replacement History of lumbar laminectomy Hx of fusion of cervical spine History of cholecystectomy Family History Other Arthritis Diabetes Prostate cancer Social History Smoking Status: Current every day smoker tobacco type: cigarettes packs per day: 1 alcohol intake: never substance use type: denies use current occupational status: other Travel in the last 8 weeks?: None household members: spouse housing: house current occupational exposures/hazards: No Have you lived/traveled outside [place] in past 30 days?: No Contact w/someone who lives/traveled outside US past 30 days?: No Exposure to someone with infectious disease in past 14 days?: No Do you have a fever (greater than 100.4 F or 38 C)?: No Have you tested positive for COVID-19?: No Exposed to someone with COVID-19 in past 14 days?: No Do you have a sore throat?: No Do you have a cough?: No Do you have any weakness?: No Do you have any diarrhea?: No Are you experiencing any unusual bleeding?: No Do you have any muscle aches/pain?: No Do you have any abdominal pain?: No Are you experiencing loss of taste or smell?: No [facility] Anesthesia Checklist Patient Identification Patient Identification: Arm Band and Verbal (Name & ) Structural Data Admitted From: Home Planned Operative Procedure/s: colonscopy Consent for Planned Operative Procedure(s) Verified: Yes Verified Documents: Surgical Consent and History and Physical NPO Status Verified Time NPO: 00:00 Additional verifications Previous Colonoscopy: Yes Airway Assessment Dentition: Good Dentition Neurological Assessment Level of Consciousness: Awake, Alert and Appropriate Hx Seizures: No Anesthesia Plan Anesthesia Risk discussed: Yes ASA Class: II Anesthesia Type: MAC
[2025-03-18 09:34] VITALS: BP 106/63; PULSE 58; RESP 18; TEMP 36.1; O2SAT 94
[2025-03-18 09:44] VITALS: BP 120/69; PULSE 58; RESP 16; O2SAT 96
[2025-03-18 09:54] VITALS: BP 126/77; PULSE 57; RESP 18; O2SAT 98
[2025-03-18 10:04] VITALS: BP 127/74; PULSE 62; RESP 16; O2SAT 98
== END 2025-03-18 10:04 | disposition home or self-care (01) ==
PROVIDERS: PCP Family Medicine; Visit Provider Internal Medicine Gastroenterology
PROC: 0DJD8ZZ Inspection of Lower Intestinal Tract, Via Natural or Artificial Opening Endoscopic (ICD-10-PCS; CPT 45378; principal; 2025-03-18 09:00)
DX: Z12.11 Encounter for screening for malignant neoplasm of colon (principal); D12.3 Benign neoplasm of transverse colon; K63.5 Polyp of colon; M19.90 Unspecified osteoarthritis, unspecified site; I25.10 Atherosclerotic heart disease of native coronary artery without angina pectoris; M10.9 Gout, unspecified; I11.9 Hypertensive heart disease without heart failure; E78.5 Hyperlipidemia, unspecified; G47.33 Obstructive sleep apnea (adult) (pediatric); F17.210 Nicotine dependence, cigarettes, uncomplicated; Z88.6 Allergy status to analgesic agent; Z88.8 Allergy status to other drugs, medicaments and biological substances; Z79.620 Long term (current) use of immunosuppressive biologic; Z79.899 Other long term (current) drug therapy
CPT/HCPCS: 45380; 45385; J2003; J2704; J7120

== ENCOUNTER 2025-05-18 11:39 | Outpatient (CLI) | payer MEDICARE, OTHER, SELFPAY ==
--- OUTSIDE RECORDS SUMMARY | 2025-05-18 11:57 | XMS_ITS | Referral Summary ---
Author Organization [employer] ([place], [place], [place], [place], [place]) Address [address] [place] [id number] Care Team Providers Care Buffer Chrome Name Role Phone Unavailable Primary Care Provider Unavailabl e Social History Tobacco Use Types Packs/Day Years Used Date Smoking Tobacco: Never Assessed Sex and Gender Information Value Date Recorded Sex Assigned at Male 12/20/2021 1:34 PM CDT Legal Sex Male 1:34 PM CDT Gender Identity Male 12/20/2021 1:34 PM CDT Sexual Orientation Not on file Plan of Treatment Not on file
--- OUTSIDE RECORDS SUMMARY | 2025-05-18 11:57 | XMS_ITS | Clinical Summary ---
Author Organization [employer] ([place], [place], [place], [place], [place]) Address [address] [place] [id number] Care Team Providers Care Glove Operator Name Role Phone Unavailable Primary Care Provider [...]
[2025-05-18 12:06] LABS: Hematocrit 44.7 % (42.0-52.0); Hemoglobin 15.6 g/dL (14.1-18.0); Immature Granulocytes % 1.1 %; Mean Corpuscular HGB Conc 34.9 g/dL (31.8-35.4); Mean Corpuscular Hemoglobin 32.3 pg (27.0-31.2); Mean Corpuscular Volume 92.5 fl (80-94); Nucleated Red Blood Cells % 0 %; Platelet Count 197 K/mm3 (142-424); Red Blood Count 4.83 M/mm3 (4.60-6.20); Red Cell Distribution Width-SD 48.6 fL; White Blood Count 9.9 K/mm3 (4.8-10.8)
[2025-05-18 12:59] LABS: Alanine Aminotransferase 19 U/L (12-78); Albumin Level 4.7 g/dl (3.5-5.0); Albumin/Globulin Ratio 1.7 (1.1-1.8); Alkaline Phosphatase 111 U/L (38-126); Anion Gap 10.4 mEq/L (5-15); Aspartate Amino Transferase 23 U/L (17-59); Bilirubin,Total 0.8 mg/dl (0.2-1.3); Blood Urea Nitrogen 14 mg/dl (9-20); Calcium 9.7 mg/dl (8.4-10.2); Carbon Dioxide 29 mmol/L (22.0-30.0); Chloride 99 mmol/L (98-107); Creatinine,Serum 1.00 mg/dl (0.66-1.25); Estimated Glomerular Filt Rate 75 ml/min (>60); GFR (African American) 90 ML/MIN (>60); Globulin 2.7 g/dL (1.3-3.2); Glucose 109 mg/dl (74-100); Potassium 4.4 mmoL/L (3.5-5.1); Sodium 134 mmol/L (136-145); Total Protein,Serum 7.4 g/dl (6.3-8.2)
== END 2025-05-18 23:59 | disposition home or self-care (01) ==
LOC: LAB 11:41
PROVIDERS: PCP Family Medicine; Visit Provider Dermatology
DX: L40.0 Psoriasis vulgaris (principal)
CPT/HCPCS: 36415; 80053; 85025; 86480